=== PATIENT | female | born 1955 | race Caucasian/White ===

== ENCOUNTER → 2019-12-12 12:42 | Outpatient (CLI) | payer BC, SELFPAY ==
--- NOTE | ~2019-12-12 | CT_ITS ---
EXAMINATION: CT chest high resolution wo id DATE: 12/12/2019 12:59 INDICATION: Sarcoidosis, unspecified TECHNIQUE: Computed tomography (CT) of the chest was performed without intravenous contrast. The dose -length product (DLP) was 283.47 mGy-cm. Automated exposure control and iterative reconstruction tech nique were employed. COMPARISON: 12/08/2018, 06/02/2018 FINDINGS: Again noted are large calcified mediastinal and bilateral hilar lymph nodes. Airspace opaci ties of the upper lobes persist without significant change. Right lower lobe airspace opacities demon strate worsening anteriorly and improvement posteriorly. Multiple tiny nodules in a perilymphatic dis tribution are again noted. There is rounded atelectasis medially in the left lower lobe. There is no pleural effusion or pneumothorax. The heart size is normal. There is a 3.6 cm cyst of the liver. The gallbladder is surgically absent. Mild thoracic spondylosis is noted. IMPRESSION: 1. Stable airspace opacities of the upper lobes and airspace opacities of the right lower lobe, some of which have improved and some of which have worsened, all consistent with sarcoid. Reviewed, dictated and finalized at location A. IMPRESSION: 1. Stable airspace opacities of the upper lobes and airspace opacities of the r ight lower lobe, some of which have improved and some of which have worsened, a ll consistent with sarcoid.
== END ==
PROVIDERS: PCP Internal Medicine Critical Care Medicine; Visit Provider Internal Medicine Critical Care Medicine
DX: D86.9 Sarcoidosis, unspecified (principal); R91.8 Other nonspecific abnormal finding of lung field
CPT/HCPCS: 71250

== ENCOUNTER 2020-01-09 12:37 | Outpatient (CLI) | payer BC, SELFPAY ==
--- NOTE | 2020-01-09 16:45 | WPDPFTINT ---
PFT Interpretation PFT Interpretation: DOS: 01/09/2020 REQUESTING: Dr Ruiz REASON FOR TESTING: sarcoidosis PULMONARY FUNCTION TESTS Results are reliable. Spirometry: FEV1 91%, FVC 80%, FEV1% 74%, all normal values. There is no increase in flows with bronchodilator. Lung volumes: TLC 94%, normal. Slow vital capacity is 89%, larger than FVC which is consistent with dynamic air trapping. RV 102%, normal. RV/TLC is increased consistent with air trapping. Increased airway resistance. Diffusion: DLCO 85%, normal. Flow volume loop: Normal. IMPRESSION: No prior study to compare. Normal spirometry. Increased air trapping evidenced by increased RV/TLC, dynamic air trapping, increased airway resistance. These findings are consistent with obstruction. This pattern can be seen in sarcoidosis. Diane Ruiz MD
== END 2020-01-09 12:38 | disposition home or self-care (01) ==
PROVIDERS: PCP Family Medicine; Visit Provider Internal Medicine Critical Care Medicine
DX: R06.02 Shortness of breath (principal)
CPT/HCPCS: 94060; 94618; 94726; 94729

== ENCOUNTER → 2020-04-01 15:00 | Outpatient (REF) | payer BC, SELFPAY | LOC: ANHLAB 15:00 | PROVIDERS: PCP Family Medicine; Visit Provider Nurse Practitioner | DX: D49.2 Neoplasm of unspecified behavior of bone, soft tissue, and skin (principal) | CPT/HCPCS: 88305 ==

== ENCOUNTER → 2020-04-14 | Outpatient (REF) | payer BC, SELFPAY | END | disposition home or self-care (01) | LOC: ANHLAB 14:56 | PROVIDERS: PCP Family Medicine; Visit Provider Nurse Practitioner | DX: D23.21 Other benign neoplasm of skin of right ear and external auricular canal (principal) | CPT/HCPCS: 88305 ==

== ENCOUNTER → 2020-06-04 07:59 | Outpatient (CLI) | payer MEDICARE, SELFPAY ==
--- NOTE | ~2020-06-04 | US_ITS ---
EXAMINATION: US right upper quadrant DATE: 06/04/2020 08:21 INDICATION: Abnormal GGT TECHNIQUE: Multiple grayscale and Doppler ultrasound images of the abdomen were obtained. COMPARISON: None available FINDINGS: The head and body of the pancreas are normal. The pancreatic tail is obscured by bowel gas. Cysts of the liver measure up to 3.4 cm. The liver is normal with normal echogenicity and echotextur e. No surface nodularity. Normal hepatopetal flow in the main portal vein. The gallbladder is surgica lly absent. The normal common bile duct measures 5 mm. IMPRESSION: 1. No sonographic correlate for the patient's symptoms. Reviewed, dictated and finalized at location A. CAL ASSISTANT SECRETARY
== END ==
PROVIDERS: PCP Family Medicine; Visit Provider Family Medicine
DX: R74.8 Abnormal levels of other serum enzymes (principal)
CPT/HCPCS: 76705

== ENCOUNTER → 2021-04-21 12:04 | Outpatient (CLI) | payer MEDICARE, SELFPAY ==
--- NOTE | ~2021-04-21 | MR_ITS ---
EXAMINATION: MR lumbar spine wo con DATE: 04/21/2021 13:04 INDICATION: Polyneuropathy. Lumbar disc disease. TECHNIQUE: Magnetic resonance imaging (MRI) of the lumbar spine was performed without intravenous con trast. Sequences included sagittal T2-weighted FSE, sagittal T2-weighted FS FSE, sagittal T1-weighted FSE, and axial T2-weighted FSE. COMPARISON: Lumbar spine MRI 11/19/2017 FINDINGS: There is 12 degrees dextroscoliosis of lumbar spine. Vertebral body heights are normal. The re is severely decreased disc height at L2-L3 and L4-L5 with endplate remodeling. The distal spinal c ord signal intensity is normal. The conus medullaris is at L1. The following disc levels are specific ally discussed: L1-L2: The disc does not extend beyond the endplate margin. There is mild bilateral facet joint osteo arthritis. There is no neural foraminal stenosis. There is no central canal stenosis. L2-L3: The disc is bulging and has an annular fissure. There is mild right and moderate left facet macey int osteoarthritis. There is mild bilateral neural foraminal stenosis. There is mild central canal st enosis. L3-L4: The disc is bulging. There is moderate bilateral facet joint osteoarthritis. There is mild vincent ateral neural foraminal stenosis. There is mild central canal stenosis. L4-L5: The disc is bulging and has an annular fissure. There is moderate bilateral facet joint osteoa rthritis. There is moderate right and mild left neural foraminal stenosis. There is mild central rodolfo l stenosis. L5-S1: The disc is bulging and has an annular fissure. There is moderate bilateral facet joint osteoa rthritis. There is mild bilateral neural foraminal stenosis. There is mild central canal stenosis. IMPRESSION: 1. Severe lumbar spondylosis, worsened from 11/19/2017. 2. Lumbar dextroscoliosis. Reviewed, dictated and finalized at location B. AL SERVICES OFFICER
--- NOTE | ~2021-04-21 | CT_ITS ---
EXAMINATION: CT abdomen pelvis w con INDICATION: Abdominal pain and bloating TECHNIQUE: Computed tomographic images of the abdomen and pelvis were obtained after the administrati on of 100 cc of Omnipaque 350 intravenous contrast. The dose-length product (DLP) was 913.26 mGy-cm. Automated exposure control and iterative reconstruction technique were employed. COMPARISON: None available FINDINGS: There are minimal airspace opacities of the visualized lung bases. The heart size is normal . Calcified pulmonary nodules and calcified bilateral hilar and mediastinal lymph nodes are consisten t with old granulomatous disease. Cysts of the liver measure up to 4 cm in the right hepatic lobe. Th e gallbladder is surgically absent. Thin calcifications along the lateral margin of the spleen could reflect prior injury. The pancreas and adrenal glands are normal. There is a posterior diverticulum o f the gastric fundus with internal hyperattenuating material. Cysts of the kidneys measure up to 1.9 cm on the right. No pathologically enlarged abdominal or pelvic lymph nodes are identified. There is no free intraperitoneal gas or evidence of bowel obstruction. There is moderate lumbar spondylosis. . IMPRESSION: 1. Minimal airspace opacities of the visualized lung bases, likely pneumonia. 2. Posterior diverticulum of the gastric fundus. Reviewed, dictated and finalized at location F. DESIGN ENGINEER
[2021-04-21 13:16] LABS: Estimated Glomerular Filt Rate > 60
== END ==
PROVIDERS: PCP Family Medicine; Visit Provider Family Medicine
DX: G62.9 Polyneuropathy, unspecified (principal); R14.0 Abdominal distension (gaseous); R91.8 Other nonspecific abnormal finding of lung field; K31.4 Gastric diverticulum; M47.896 Other spondylosis, lumbar region
CPT/HCPCS: 72148; 74177; Q9967

== ENCOUNTER 2021-10-16 07:29 | Outpatient (CLI) | payer MEDICARE, SELFPAY ==
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
[2021-11-11 14:41] VITALS: BMI 27.8
== END 2021-10-17 06:18 | disposition home or self-care (01) ==
LOC: ANHCSM 07:29
PROVIDERS: PCP Family Medicine; Visit Provider Internal Medicine Critical Care Medicine
DX: G47.33 Obstructive sleep apnea (adult) (pediatric) (principal); G25.81 Restless legs syndrome
CPT/HCPCS: 95811

== ENCOUNTER 2021-12-05 11:24 | Outpatient (CLI) | payer MEDICARE, SELFPAY | END 2021-12-05 11:25 | disposition home or self-care (01) | PROVIDERS: PCP Family Medicine; Visit Provider Nurse Practitioner Family | DX: E11.9 Type 2 diabetes mellitus without complications (principal); G25.81 Restless legs syndrome | CPT/HCPCS: 36415; 82728 ==

== ENCOUNTER 2022-02-19 12:11 | Outpatient (CLI) | payer MEDICARE, SELFPAY ==
[2022-02-19 14:04] LABS: Ferritin 9.18 ng/mL (11.1-264)
== END 2022-02-19 12:12 | disposition home or self-care (01) ==
PROVIDERS: PCP Family Medicine; Visit Provider Nurse Practitioner Family
DX: E11.9 Type 2 diabetes mellitus without complications (principal); G25.81 Restless legs syndrome
CPT/HCPCS: 36415; 82728

== ENCOUNTER 2022-06-18 11:15 | Outpatient (CLI) | payer MEDICARE, SELFPAY ==
--- NOTE | ~2022-06-18 | XR_ITS ---
EXAMINATION: XR lumbar spine 2-3V DATE: 06/18/2022 12:09 INDICATION: Low back pain. TECHNIQUE: 3 views of lumbar spine were obtained. COMPARISON: Lumbar spine MRI 04/21/2021 FINDINGS: There is 11 degrees dextroscoliosis of thoracolumbar spine. Vertebral body heights are norm al. There is severely decreased disc height at L2-L3, mildly decreased disc height at L3-L4, severely decreased disc height at L4-L5, and mildly decreased disc height at L5-S1. There is multilevel mild to moderate facet joint osteoarthritis. Surgical clips in the right upper quadrant are likely from ch olecystectomy. IMPRESSION: 1. Severe lumbar spondylosis. 2. Thoracolumbar dextroscoliosis. Reviewed, dictated and finalized at location A. K SALES REPRESENTATIVE
--- NOTE | ~2022-06-18 | XR_ITS ---
Cervical Spine: AP, lateral, open-mouth views Clinical History: Pain Findings: The normal lordotic curve is maintained. The vertebral bodies and posterior elements appea r intact. There is mild degenerative disc narrowing at C5-C6. There is mild uncovertebral joint degen erative change at C5-C6. Pre-vertebral soft tissues are unremarkable. Impression: Mild degenerative changes at C5-C6, as detailed above. Reviewed, dictated and finalized at location . R SCHOOL MUSIC TEACHER Impression: Mild degenerative changes at C5-C6, as detailed above.
== END 2022-06-18 11:16 | disposition home or self-care (01) ==
PROVIDERS: PCP Family Medicine; Visit Provider Physician Assistant
DX: M51.36 Other intervertebral disc degeneration, lumbar region (principal); M50.322 Other cervical disc degeneration at C5-C6 level; M47.896 Other spondylosis, lumbar region; D64.9 Anemia, unspecified
CPT/HCPCS: 36415; 72050; 72100; 82728

== ENCOUNTER 2022-09-14 13:18 | Outpatient (CLI) | payer MEDICARE, SELFPAY | END 2022-09-14 13:19 | disposition home or self-care (01) | PROVIDERS: PCP Family Medicine; Visit Provider Physician Assistant | DX: D64.9 Anemia, unspecified (principal) | CPT/HCPCS: 36415; 82728 ==

== ENCOUNTER 2022-12-11 11:15 | Outpatient (CLI) | payer MEDICARE, SELFPAY | END 2022-12-11 11:16 | disposition home or self-care (01) | LOC: ANHLAB 11:17 | PROVIDERS: PCP Family Medicine; Visit Provider Physician Assistant | DX: D64.9 Anemia, unspecified (principal) | CPT/HCPCS: 36415; 82728 ==

== ENCOUNTER 2023-05-13 14:52 | Outpatient (CLI) | payer MEDICARE, SELFPAY | END 2023-05-13 14:53 | disposition home or self-care (01) | PROVIDERS: PCP Family Medicine; Visit Provider Physician Assistant | DX: D64.9 Anemia, unspecified (principal) | CPT/HCPCS: 36415; 82728 ==

== ENCOUNTER 2023-11-08 10:13 | Outpatient (CLI) | payer MEDICARE, SELFPAY ==
--- NOTE | ~2023-11-08 | CT_ITS ---
CT Scan of the Chest without Contrast: Clinical Indication: Sarcoid Technique: Contiguous sections were acquired throughout the chest without intravenous contrast. Dose reduction technique was used on this scan by utilizing automated exposure control and iterative recon struction technique. The dose-length product (DLP) was 230.78 mGy-cm. COMPARISON: 12/12/2019 Findings: There are numerous calcified lymph nodes throughout the mediastinum and bilateral hilar regions. No a xillary lymphadenopathy. The mediastinal soft tissues otherwise appear normal. There is no evidence of pleural or pericardial effusion. There are upper lobe predominant chronic interstitial changes, which are essentially stable from prio r exam, with possible mild interval improvement in some areas of impacted airways or atelectatic ahuja ge.. Images through the upper abdomen reveal no abnormalities. Impression: Upper lobe predominant interstitial disease, stable to minimally improved from prior exam, compatible with pulmonary sarcoid. Numerous calcified mediastinal and hilar lymph nodes, compatible with sarcoid. Reviewed, dictated and finalized at [facility]. Impression: Upper lobe predominant interstitial disease, stable to minimally improved from prior exam, compatible with pulmonary sarcoid. Numerous calcified mediastinal and hilar lymph nodes, compatible with sarcoid.
== END 2023-11-08 10:14 ==
LOC: GOSHIMG 10:15
PROVIDERS: PCP Family Medicine; Visit Provider Physician Assistant
DX: D86.9 Sarcoidosis, unspecified (principal)
CPT/HCPCS: 71250

== ENCOUNTER 2024-07-09 07:47 | Outpatient (CLI) | payer MEDICARE, SELFPAY ==
--- NOTE | ~2024-07-09 | MR_ITS ---
MRI of the lumbar spine Clinical History: Spinal stenosis Technique: Axial T2-weighted images, and sagittal T1-weighted, T2-weighted, and T2 fat-sat images wer e acquired. Findings: There is no fracture or subluxation of the lumbar spine. Vertebral bodies maintain normal h eight and alignment. No bone marrow signal abnormality seen. At L1-L2, there is no disc bulge or herniation. There is minimal facet hypertrophy. No spinal canal s tenosis or neural foraminal narrowing. At L2-L3, there is mild degenerative disc narrowing. There is minimal disc bulge with moderate facet arthropathy. No central canal stenosis or neural foraminal narrowing. At L3-L4, there is minimal disc bulge with moderate to advanced facet arthropathy. No central canal s tenosis or neural foraminal narrowing. At L4-L5, there is advanced degenerative disc narrowing. There is minimal disc bulge with severe face t arthropathy. No central canal stenosis. There is probable minimal right neural foraminal narrowing. Left neural foramen preserved. At L5-S1, there is no significant disc bulge or herniation. There is mild facet joint hypertrophy. No central canal stenosis. Neural foramina are minimally narrowed. Paravertebral soft tissues are unremarkable. Impression: Mild degenerative spondylitic changes, as above. Reviewed, dictated and finalized at location . Impression: Mild degenerative spondylitic changes, as above.
== END 2024-07-09 07:48 | disposition home or self-care (01) ==
PROVIDERS: PCP Family Medicine; Visit Provider Family Medicine
DX: M48.061 Spinal stenosis, lumbar region without neurogenic claudication (principal); M47.896 Other spondylosis, lumbar region
CPT/HCPCS: 72148

== ENCOUNTER 2024-09-18 10:07 | Outpatient (CLI) | payer MEDICARE, SELFPAY ==
--- OUTSIDE RECORDS SUMMARY | 2024-09-18 10:13 | XMS_ITS ---
Author Organization [facility] Address [address] [place] [address] Care Team Providers Care Insulation Helper Name Role Phone Mague Cuenca MD Primary Care Provider Unavail Fanny Allen Unavailable [phone] REASON FOR VISIT diabetic foot care Encounters Encounter Location Date Provider Diagnosis Matthew Aguilar Dpm [facility] [address] [phone] 06/25/2024 Fanny Guadalupe Plan Of Treatment Next Appt Details Provider Name:Fanny lai, 10/22/2024 03:30:00 PM, [address] [address], [place], [place], [phone], Progress Notes * ASHOKCOLBYRenaOB:1955 (68 yo F)Acc No.[id number]:06/25/2024 Patient: Aakash ESTELLEShy LAND Provider: Linda Guadalupe DPM, DABPM :1955 A ge:68 Y S ex:Female Date:06/25/2024 Address:[facility] [address] [facility] Pcp:Mague Cuenca MD Subjective: * Chief Complaints: * 1 . Diabetic foot care. * Medical History: Objective: * Vitals: Assessment: Plan: * Treatment: * Billing Information: * Visit Code: * Procedure Codes: * Electronic signature of Marcia Guadalupe DPM DABPM on 09/18/2024 at 10:13 AM CDT Sign off status: Pending * Provider: Linda Guadalupe DPM, DABPM Date: 0 06/25/2024 Generated for Marita regalado/Wendy/Bijan on: 0 09/18/2024 10:13 AM CDT
--- OUTSIDE RECORDS SUMMARY | 2024-09-18 10:13 | XMS_ITS ---
Author Organization [facility] Address [address] [place] [address] Care Team Providers Care Still Operator Helper Name Role Phone Mague Cuenca MD Primary Care Provider Unavail Fanny Allen Unavailable [phone] REASON FOR VISIT diabetic foot care Encounters Encounter Location Date Provider Diagnosis Matthew Aguilar Dpm [facility] [address] [phone] 04/09/2024 Fanny Guadalupe Plan Of Treatment Next Appt Details Provider Name:Fanny lai, 10/22/2024 03:30:00 PM, [address] [address], [place], [place], [id number], Progress Notes * ASHOKCOLBYRenaOB:1955 (68 yo F)Acc No.[id number]:04/09/2024 Patient: Shy SHEPARD Provider: Linda Guadalupe DPM, DABPM :1955 A ge:68 Y S ex:Female Date:04/09/2024 Address: [address] [facility] Pcp:Mague Cuenca MD Subjective: * Chief Complaints: * 1 . Diabetic foot care. * Medical History: Objective: * Vitals: Assessment: Plan: * Treatment: * Billing Information: * Visit Code: * Procedure Codes: * Electronic signature of Marcia Guadalupe DPM DABPM on 09/18/2024 at 10:13 AM CDT Sign off status: Pending * Provider: Linda Guadalupe DPM, FRANCESCA Date: 1 06/10/2023 Generated for Marita regalado/Wendy/Bijan on: 0 09/18/2024 10:13 AM CDT
--- OUTSIDE RECORDS SUMMARY | 2024-09-18 10:14 | XMS_ITS | Patient Health Record ---
Author Organization [facility] Address [address] [place] [address] Care Team Providers Care Retort Condenser Attendant Name Role Phone Dr. Mague Cuenca Primary Care Provider [phone] Zach Wilcox Unavailable [phone] Sowmya Youngblood Unavailable [phone] Migration, Provider Unavailable Unavailable Allergies Allergen (clinical drug ingredient) Drug/Non Drug Allergy documented on EMR Reaction Allergy Type Onset Date Status metoclopramide Reglan Unknown Drug Allergy 11/04/2020 A ctive Medicinal cephalosporin and acting as antibacterial agent (FN) Cephalosporins Unknown Drug Allergy 11/04/2020 Active clindamycin Clindamycin Unknown Drug Allergy 11/04/2020 Ac tive Substance with penicillin structure and antibacterial mechanism of action (substance) Penicillins Unknown Drug Allergy 11/04/2020 Active Substance with sulfonamide structure and antibacterial mechanism of action (substance) Sulfa Antibiotics Unknown Drug Allergy 11/04/2020 Active Results Component Value Reference Range Notes Patient Health Questionnaire (PHQ9) Reviewed date:02/15/2024 12:00:00 AM Interpretation: Performing Lab: Notes/Report: Feeling bad about yourself o r that you are a failure or have let yourself or your family down 0 Feeling down, depressed, or hopeless 0 Feeling tired or having little energy 0 If you checked off any probl ems, how difficult Not difficult at all have these problems made it for you to do your work, take care of things at home, or get along with other people? 0 Little interest or pleasure in doing things 0 Moving or speaking so slowly that other people could have noticed or the opposite being so figety or restless that you have been moving around a lot more than usual 0 Poor appetite or overeating 0 Thoughts that you would be b amie off , or of hurting yourself 0 Trouble concentrating on thi ngs, such as reading the newspaper or watching television 0 Trouble falling or staying a sleep, or sleeping too much 0 Vitamin D 25 Hydroxy Reviewed date:02/24/2024 12:00:00 AM Interpretation: Performing Lab: Notes/Report: Vitamin D 25 OH 33 ng/mL Vitamin B12 Reviewed date:02/24/2024 12:00:00 AM Interpretation: Performing Lab: Notes/Report: Vitamin B12 Lvl 968 pg/mL Thyroid Stimulating Hormone Reviewed date:02/24/2024 12:00:00 AM Interpretation: Performing Lab: Notes/Report: TSH 1.44 mcIU/mL T4 Free Reviewed date:02/24/2024 12:00:00 AM Interpretation: Performing Lab: Notes/Report: T4 Free 0.99 ng/dL Lipid Panel {Chol, Trig, HDL , LDL} Reviewed date:02/27/2024 12:00:00 AM Interpretation: Performing Lab: Notes/Report: Chol/HDL 3 Cholesterol Total 120 mg/dL Coronary Risk 37 % HDL 45 mg/dL LDL 26 mg/dL NON HDL CHOLESTEROL 76 mg/dL Triglycerides 248 mg/dL Comprehensive Metabolic Pane l Reviewed date:02/27/2024 12:00:00 AM Interpretation: Performing Lab: Notes/Report: Albumin Lvl 4.5 g/dL Albumin/Globulin Ratio 2.0 Alk Phos 92 unit/L ALT 27 unit/L ANION GAP 5.3 mmol/L AST 24 unit/L Bilirubin Total 0.3 mg/dL BUN 24 mg/dL Calcium Lvl 9.7 mg/dL Chloride Lvl 108 mmol/L CO2 30 mmol/L Creatinine Lvl 1.02 mg/dL eGFR CKD-EPI 59 mL/min/1.73 m2 Glucose Lvl 77 mg/dL Potassium Lvl 4.5 mmol/L Protein Total 6.8 g/dL Sodium Lvl 143 mmol/L CBC w/ Diff Reviewed date:02/24/2024 12:00:00 AM Interpretation: Performing Lab: Notes/Report: Baso Absolute 0.1 x10*3/mcL Basophil Auto 1.4 % Eos Absolute 0.1 x10*3/mcL Eosinophil Auto 1.1 % Hct 38.9 % Hgb 12.6 g/dL Lymph Absolute 1.5 x10*3/mcL Lymph Auto 31.8 % MCH 27.8 pg MCHC 32.4 g/dL MCV 85.8 fL Young Absolute 0.4 x10*3/mcL Young Auto 7.7 % MPV 11.2 fL Neutro Absolute 2.8 x10*3/mcL Neutro Auto 58.0 % Platelets 118 K/mcL RBC 4.53 x10*6/mcL RDW 14.2 % WBC 4.8 K/mcL AUDIT-C Reviewed date:02/15/2024 12:00:00 AM Interpretation: Performing Lab: Notes/Report: How many standard drinks con taining alcohol do you have on a typical day? N/A How often do you have 6 or m ore drinks on 1 occasion Never How often do you have a drin k containing alcohol Never Total Score 0 Thyroid Stimulating Hormone Reviewed date:12/09/2023 12:00:00 AM Interpretation: Performing Lab: Notes/Report: TSH 0.94 mcIU/mL T4 Free Reviewed date:12/09/2023 12:00:00 AM Interpretation: Performing Lab: Notes/Report: T4 Free 0.80 ng/dL Magnesium Reviewed date:12/09/2023 12:00:00 AM Interpretation: Performing Lab: Notes/Report: Magnesium Lvl 1.8 mg/dL Lipid Panel {Chol, Trig, HDL , LDL} Reviewed date:12/09/2023 12:00:00 AM Interpretation: Performing Lab: Notes/Report: Chol/HDL 3 Cholesterol Total 115 mg/dL Coronary Risk 34 % HDL 39 mg/dL LDL 29 mg/dL NON HDL CHOLESTEROL 76 mg/dL Triglycerides 238 mg/dL Hemoglobin A1c {Glycosylated } Reviewed date:12/09/2023 12:00:00 AM Interpretation: Performing Lab: Notes/Report: eAvg Glucose 123 mg/dL Hemoglobin A1c 5.9 % Comprehensive Metabolic Pane l Reviewed date:12/09/2023 12:00:00 AM Interpretation: Performing Lab: Notes/Report: Albumin Lvl 4.4 g/dL Albumin/Globulin Ratio 2.0 Alk Phos 87 unit/L ALT 23 unit/L ANION GAP 7.7 mmol/L AST 22 unit/L Bilirubin Total 0.4 mg/dL BUN 18 mg/dL Calcium Lvl 10.0 mg/dL Chloride Lvl 109 mmol/L CO2 26 mmol/L Creatinine Lvl 0.86 mg/dL eGFR CKD-EPI 73 mL/min/1.73 m2 Glucose Lvl 106 mg/dL Potassium Lvl 4.7 mmol/L Protein Total 6.7 g/dL Sodium Lvl 143 mmol/L CBC w/ Diff Reviewed date:12/09/2023 12:00:00 AM Interpretation: Performing Lab: Notes/Report: Baso Absolute 0.1 x10*3/mcL Basophil Auto 1.1 % Eos Absolute 0.1 x10*3/mcL Eosinophil Auto 1.3 % Hct 36.7 % Hgb 12.4 g/dL Lymph Absolute 1.1 x10*3/mcL Lymph Auto 22.8 % MCH 29.2 pg MCHC 33.7 g/dL MCV 86.7 fL Young Absolute 0.3 x10*3/mcL Young Auto 6.3 % MPV 11.8 fL Neutro Absolute 3.3 x10*3/mcL Neutro Auto 68.5 % Platelets 117 K/mcL RBC 4.24 x10*6/mcL RDW 13.4 % WBC 4.9 K/mcL MRI : Lumbar without contras t Reviewed date:09/06/2024 01:48:08 PM Interpretation: Performing Lab: Notes/Report: Chest X-ray PA and lateral Reviewed date:09/06/2024 02:23:12 PM Interpretation: Performing Lab: Notes/Report: Reason For Referral No Information Medications Medication SIG (Take, Route, Frequency, Duration) Notes Start Date End Date Status Pregabalin 150 MG Capsule 1 capsule Orally 3 times a day; Duration: 30 days increased dose. 06/22/2024 12/19/2024 Active Fiasp FlexTouch 100 UNIT/ML Solution Pen-injector 3 Subcutaneous three times a day; Duration: 0 11/18/2021 Active Omeprazole 40 MG Capsule Delayed Release 1 Oral two times a day; Duration: 90 Active Rosuvastatin Calcium 10 MG Tablet 1 tablet Orally Once a day; Duration: 90 days at bedtime Active BLOOD GLUCOSE MONITORING EACH MISCELLANEOUS; Duration: 0 *Reorder from [employer] for eRx and Interaction Alerts* 02/18/2021 Active Montelukast Sodium 10 MG Tablet 1 Oral every evening; Duration: 90 Active Insulin Degludec FlexTouch 200 UNIT/ML Solution Pen-injector 50 units Subcutaneous daily; Duration: 90 days updated Rx with generic name coverage per ins. 06/22/2024 Active Potassium Chloride ER 20 MEQ Tablet Extended Release 1 tablet with food Orally Once a day; Duration: 90 days Active Wellbutrin XL 300 MG Tablet Extended Release 24 Hour 1 tablet in the morning Orally Once a day; Duration: 90 days increased dose up from 150mg. Pt will finish her 150mg XL tabs first. 06/22/2024 Active Topiramate 25 MG Tablet 1 Oral two times a day; Duration: 90 Active Centrum Silver Women 8 mg iron-400 mcg-300 mcg Tablet 1 Oral every day; Duration: 0 *Reorder from [employer] for eRx and Interaction Alerts* 03/30/2022 Active Escitalopram Oxalate 10 MG Tablet 1 Oral at bed time; Duration: 90 Active Biotin oral; Duration: 0 *Pick strength-form from [employer] for eRX* 03/02/2024 Not-Taking ProAir RespiClick 108 (90 Base) MCG/ACT Aerosol Powder Breath Activated 2 Inhalation every four hours; Duration: 0 01/07/2023 Not-Taking calcium carb and citrate-vitD3 600 mg-12.5 mcg (500 unit) Tablet(s) 2 BY MOUTH two times a day; Duration: 0 *Reorder from [employer] for eRx and Interaction Alerts* 03/30/2022 Active Lancing Device KIT MISCELLANEOUS; Duration: 0 02/18/2021 Not-Taking Ozempic (1 MG/DOSE) 4 MG/3ML Solution Pen-injector as directed Subcutaneous Active rOPINIRole HCl 1 MG Tablet 1 tablet 1 to 3 hours before bedtime Orally Once a day; Duration: 30 days Active vitamin E (dl, acetate) 180 mg (400 unit) Capsule(s) 1 BY MOUTH two times a day; Duration: 0 *Reorder from [employer] for eRx and Interaction Alerts* 03/30/2022 Active Immunizations Vaccine Route Administration Date Status Comme nts Zoster Unknown 08/08/2017 Administered ,sourcename : Historical information -from other registry Source VFC Code: : Zoster Unknown 10/19/2018 Administered ,sourcename : Historical information -from other registry Source VFC Code: : Tdap Unknown 10/24/2017 Administered ,sourcename : Historical information -from other registry Source VFC Code: : RSV-MAb (Respiratory syncytial virus immune globulin) IM Intramuscular 12/16/2023 Administered ,sourcename : New immunization record ,immstatus : Complete Pneumococcal polysaccharide PPV23 Unknown 04/11/2012 Administered ,sourcename : Historical information -from other registry Source VFC Code: : Pneumococcal polysaccharide PPV23 Unknown 01/04/2020 Administered ,sourcename : Historical information -from other registry Source VFC Code: : Pneumococcal conjugate PCV 13 Unknown 02/07/2017 Administered ,sourcename : Historical information -from other registry Source VFC Code: : Pfizer-Biontech Covid-19 Vaccine 1st dose Unknown 06/12/2020 Administered Source VFC Code: : Pfizer-[employer]iontech Covid-19 Vaccine 1st dose Unknown 07/03/2020 Administered Source VFC Code: : Influenza, quadrivalent (IIV4), split virus, 6-35 months dosage IM Intramuscular 01/26/2018 Administered Source VFC Code: : Influenza, quadrivalent (IIV4), split virus, 6-35 months dosage IM Intramuscular 04/22/2020 Administered Source VFC Code: : Influenza, high-dose seasonal, quadrivalent, preservative free >65 yrs IM Intramuscular 04/08/2021 Administered ,sourcename : New immunization record ,immstatus : Complete Source VFC Code: : Influenza, high-dose seasonal, quadrivalent, preservative free >65 yrs IM Intramuscular 02/22/2022 Administered Source VFC Code: : Influenza, high dose seasonal IM Intramuscular 04/10/2019 Administered Source VFC Code: : Influenza, high dose seasonal IM Intramuscular 04/08/2021 Administered Source VFC Code: : Social History Social History Additional Details Category Social Info Options Details Migrated Social History Migrated Social History Tobacco history:Never smoker Problems Problem Type SNOMED Code ICD Code Onset Dates Problem Status W/U Status Risk Notes Problem Hypothyroidism (21767473) Hypothyroidism, unspecified (E03.9) 01/08/20 Active confirmed Problem Diabetic peripheral neuropathy associated with type 2 diabetes mellitus (6868093505492) Type 2 diabetes mellitus with diabetic neuropathy, unspecified (E11.40) 04/08/20 Active confirmed Problem Hyperglycemia due to type 2 diabetes mellitus (485328133218524) Type 2 diabetes mellitus with hyperglycemia (E11.65) 10/15/19 23 Active confirmed Problem Mixed hyperlipidemia (915312359) Mixed hyperlipidemia (E78.2) 01/08/20 21 Active confirmed Problem Severe recurrent major depression without psychotic features (69732644) Major depressive disorder, recurrent severe without psychotic features (F33.2) 09/18/19 23 Active confirmed Problem Anxiety disorder (497624273) Anxiety disorder, unspecified (F41.9) 08/26/19 24 Active confirmed Problem Sleep apnea (25368357) Sleep apnea, unspecified (G47.30) 02/23/20 22 Active confirmed Problem Polyneuropathy (16776856) Polyneuropathy, unspecified (G62.9) 04/08/20 21 Active confirmed Problem Gastro-esophageal reflux disease without esophagitis (583821754) Gastro-esophageal reflux disease without esophagitis (K21.9) 01/08/20 21 Active confirmed Problem Arthralgia of the pelvic region and thigh (246195537) Pain in right hip (M25.551) 11/08/19 24 Active confirmed Problem Exocrine pancreatic insufficiency (38828935) Exocrine pancreatic insufficiency (K86.81) 12/01/19 22 Active confirmed Problem Body mass index 25-29 - overweight (644365316) Body mass index (BMI) 26.0-26.9, adult (Z68.26) 02/15/20 24 Active confirmed Problem Long-term current use of insulin (610576396) long term care pharmacist (current) use of insulin (Z79.4) 08/26/19 24 Active confirmed Problem Atrial fibrillation (10192813) Unspecified atrial fibrillation (I48.91) 08/29/19 22 Active confirmed Problem Essential hypertension (16650777) Essential (primary) hypertension (I10) 04/08/20 21 Active confirmed Problem Iron deficiency (28543038) Iron deficiency (E61.1) 02/23/20 22 Active confirmed Problem Diabetic renal disease (098190900) Type 2 diabetes mellitus with diabetic chronic kidney disease (E11.22) 08/26/19 24 Active confirmed Problem Sarcoidosis of lung (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) 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) 05/28/19 23 Active confirmed Problem Thrombocytopenia (854333312) Thrombocytopenia, unspecified (D69.6) 12/01/19 22 Active confirmed Problem Headache (57711214) Headache, unspecified (R51.9) 03/02/20 24 Active confirmed Problem Chronic kidney disease stage 3A (disorder) (819316310) Chronic kidney disease, stage 3a (N18.31) 02/15/20 24 Active confirmed Problem Spinal stenosis of lumbar region (29324884) Spinal stenosis, lumbar region without neurogenic claudication (M48.061) 10/15/19 23 Active confirmed Problem Insomnia (793832166) Insomnia, unspecified (G47.00) 03/04/20 23 Active confirmed Vital Signs Heart Rate 76 /min 07/26/2024 Temperature 97.2 degrees Fahrenheit 07/26/2024 Respiratory Rate 16 /min 07/26/2024 Height-cm 170.18 cm 07/26/2024 Blood pressure diastolic 68 mm Hg 07/26/2024 Oximetry 97 % 07/26/2024 Weight-kg 79.83 kg 07/26/2024 Height 67.00 in 07/26/2024 Blood pressure systolic 130 mm Hg 07/26/2024 Weight 176 lbs 07/26/2024 BMI 27.56 kg/m2 07/26/2024 Procedures Procedure Date Ordered Date Performed Result Body Sit e SPECIAL EYE EVALUATION 05/31/2024 05/30/2024 Normal Encounters Encounter Location Date Provider Diagnosis [address] [address] 11/08/2023 Zach Jeri Polyneuropathy, unspecified G62.9 and Pain in right hip M25.[address] [address] 12/08/2023 Provider Migration Hypothyroidism, unspecified E03.9 ; Type 2 diabetes mellitus with diabetic chronic kidney disease E11.22 ; Essential (primary) hypertension I10 and Hyperlipidemia, unspecified E78.[address] [address] 12/16/2023 Dr. Mague Cuenca Type 2 diabetes mellitus with diabetic neuropathy, unspecified E11.40 ; Sarcoidosis, unspecified D86.9 ; Asymptomatic menopausal state Z78.0 ; Spinal stenosis, lumbar region without neurogenic claudication M48.061 ; Hypothyroidism, unspecified E03.9 ; Encounter for immunization Z23 ; Exocrine pancreatic insufficiency K86.81 ; Essential (primary) hypertension I10 ; Hyperlipidemia, unspecified E78.5 and Thrombocytopenia, unspecified D69.[address] [place] [address] 02/15/2024 [facility] Chronic kidney disease, stage 3a N18.31 ; Body mass index (BMI) 26.0-26.9, adult Z68.26 ; Major depressive disorder, recurrent severe without psychotic features F33.2 ; Essential (primary) hypertension I10 ; Type 2 diabetes mellitus with diabetic neuropathy, unspecified E11.40 ; Unspecified atrial fibrillation I48.91 ; Obstructive sleep apnea (adult) (pediatric) G47.33 ; Sarcoidosis of lung D86.0 ; Exocrine pancreatic insufficiency K86.81 and Encounter for general adult medical examination without abnormal findings Z00.[address] [address] 02/24/2024 Provider Migration Iron deficiency E61. 1 ; Other fatigue R53.83 ; Hyperlipidemia, unspecified E78.5 ; Hypothyroidism, unspecified E03.9 and Type 2 diabetes mellitus with diabetic chronic kidney disease E11.[address] [address] 03/02/2024 Sowmya Youngblood Type 2 diabetes mellitus with diabetic chronic kidney disease E11.22 ; Major depressive disorder, recurrent severe without psychotic features F33.2 ; Hypothyroidism, unspecified E03.9 ; Type 2 diabetes mellitus with diabetic neuropathy, unspecified E11.40 ; Sarcoidosis of lung D86.0 ; Hyperlipidemia, unspecified E78.5 and Headache, unspecified R51.[address] [address] 04/09/2024 Sowmya Youngblood Fatigue, unspecified type R53.83 ; Acute cough R05.1 and Sarcoidosis of lung D86.[address] [address] 04/19/2024 Dr. Mague Cuenca Acute cough R05.1 ; Acute non-recurrent sinusitis of other sinus J01.80 and Acute bronchitis, unspecified organism J20.[address] [address] 04/28/2024 [facility] Upper respiratory infection, acute J06.9 and Persistent cough R05.[address] [address] 06/22/2024 Dr. Mague Cuenca Type 2 diabetes mellitus with diabetic chronic kidney disease E11.22 ; Thrombocytopenia, unspecified D69.6 ; Sarcoidosis of lung D86.0 ; Essential (primary) hypertension I10 ; Type 2 diabetes mellitus with hyperglycemia E11.65 ; Spinal stenosis, lumbar region without neurogenic claudication M48.061 ; RLS (restless legs syndrome) G25.81 and Major depressive disorder, recurrent severe without psychotic features F33.[address] [address] 07/26/2024 Dr. Mague Cuenca Type 2 diabetes mellitus with diabetic neuropathy, unspecified E11.40 ; Major depressive disorder, recurrent severe without psychotic features F33.2 ; Abnormal gait R26.9 and Other fatigue R53.[address] [address] 03/24/2024 Provider Migration [address] [address] 03/25/2024 Provider Migration [address] [address] 06/19/2024 Dr. Mague Cuenca Hypothyroidism, unspecified E03.9 ; Type 2 diabetes mellitus with diabetic chronic kidney disease E11.22 ; Iron deficiency E61.1 ; Mixed hyperlipidemia E78.2 ; Essential (primary) hypertension I10 and Hypomagnesemia E83.42 Assessments Encounter Date Diagnosis (ICD Code) Assessment Notes Treatment Notes Treatment Clinical Notes Section Notes 06/19/2024 Hypothyroidism, unspecified (ICD-10 - E03.9) 06/19/2024 Type 2 diabetes mellitus with diabetic chronic kidney disease (ICD-10 - E11.22) 04/09/2024 Acute cough (ICD-10 - R05.1) - Symptoms and exposure suggest possible COVID-19 infection. Patient's symptoms align with COVID-19, but no test was conducted to confirm per patient's request and being day 5.- Treat as if COVID-19. Recommend staying home, pushing fluids, and treating symptoms with [id number] medication. Offered Paxlovid as an antiviral option within the first five days of symptoms, but patient is on the last day of this window. Prescribed a Z-Chucky (antibiotic) to cover potential secondary infections and w/ hx of sarcoidosis. Advised to call if no improvement 04/09/2024 Fatigue, unspecified type (ICD-10 - R53.83) 04/19/2024 Acute cough (ICD-10 - R05.1) Cxray reviewed and neg for PNE but there may be some peribronchial changes. Recommend to start avelox 400mg daily x 10 days. Take with food. May take probiotic or eat yogurt daily. RTC for worsening sx. Pt aware. 04/19/2024 Acute non-recurrent sinusitis of other sinus (ICD-10 - J01.80) 04/28/2024 Upper respiratory infection, acute (ICD-10 - J06.9) 04/28/2024 Persistent cough (ICD-10 - R05.3) 06/22/2024 Thrombocytopenia, unspecified (ICD-10 - D69.6) continue to monitor. Was 140 last check at last checkup. 06/22/2024 Type 2 diabetes mellitus with diabetic chronic kidney disease (ICD-10 - E11.22) 32 mins spent face to face with patient, additionally 9 mins spent finishing charting and reviewing MRI lumbar spine. well controlled. Cont to see Dr. Bar f/u 6 months 07/26/2024 Type 2 diabetes mellitus with diabetic neuropathy, unspecified (ICD-10 - E11.40) managed by endo. reassurred her that her recent HBa1C as still wnl and overall control is pretty good. f/u with endo. call with concerns as well. 11/08/2023 Polyneuropathy, unspecified (ICD-10 - G62.9) 11/08/2023 Pain in right hip (ICD-10 - M25.551) 12/08/2023 Hypothyroidism, unspecified (ICD-10 - E03.9) 12/08/2023 Type 2 diabetes mellitus with diabetic chronic kidney disease (ICD-10 - E11.22) 12/08/2023 Hyperlipidemia, unspecified (ICD-10 - E78.5) 12/08/2023 Essential (primary) hypertension (ICD-10 - I10) 12/16/2023 Thrombocytopenia, unspecified (ICD-10 - D69.6) 12/16/2023 Sarcoidosis, unspecified (ICD-10 - D86.9) 12/16/2023 Hypothyroidism, unspecified (ICD-10 - E03.9) 12/16/2023 Type 2 diabetes mellitus with diabetic neuropathy, unspecified (ICD-10 - E11.40) 12/16/2023 Hyperlipidemia, unspecified (ICD-10 - E78.5) 12/16/2023 Essential (primary) hypertension (ICD-10 - I10) 12/16/2023 Encounter for immunization (ICD-10 - Z23) 12/16/2023 Asymptomatic menopausal state (ICD-10 - Z78.0) 12/16/2023 Exocrine pancreatic insufficiency (ICD-10 - K86.81) 12/16/2023 Spinal stenosis, lumbar region without neurogenic claudication (ICD-10 - M48.061) 02/15/2024 Sarcoidosis of lung (ICD-10 - D86.0) 02/15/2024 Type 2 diabetes mellitus with diabetic neuropathy, unspecified (ICD-10 - E11.40) 02/15/2024 Major depressive disorder, recurrent severe without psychotic features (ICD-10 - F33.2) 02/15/2024 Obstructive sleep apnea (adult) (pediatric) (ICD-10 - G47.33) 02/15/2024 Essential (primary) hypertension (ICD-10 - I10) 02/15/2024 Unspecified atrial fibrillation (ICD-10 - I48.91) 02/15/2024 Encounter for general adult medical examination without abnormal findings (ICD-10 - Z00.00) 02/15/2024 Exocrine pancreatic insufficiency (ICD-10 - K86.81) 02/15/2024 Chronic kidney disease, stage 3a (ICD-10 - N18.31) 02/15/2024 Body mass index (BMI) 26.0-26.9, adult (ICD-10 - Z68.26) 02/24/2024 Hypothyroidism, unspecified (ICD-10 - E03.9) 02/24/2024 Type 2 diabetes mellitus with diabetic chronic kidney disease (ICD-10 - E11.22) 02/24/2024 Iron deficiency (ICD-10 - E61.1) 02/24/2024 Hyperlipidemia, unspecified (ICD-10 - E78.5) 02/24/2024 Other fatigue (ICD-10 - R53.83) 03/02/2024 Sarcoidosis of lung (ICD-10 - D86.0) 03/02/2024 Hypothyroidism, unspecified (ICD-10 - E03.9) 03/02/2024 Type 2 diabetes mellitus with diabetic chronic kidney disease (ICD-10 - E11.22) 03/02/2024 Type 2 diabetes mellitus with diabetic neuropathy, unspecified (ICD-10 - E11.40) 03/02/2024 Hyperlipidemia, unspecified (ICD-10 - E78.5) 03/02/2024 Major depressive disorder, recurrent severe without psychotic features (ICD-10 - F33.2) 03/02/2024 Headache, unspecified (ICD-10 - R51.9) 04/09/2024 Sarcoidosis of lung (ICD-10 - D86.0) 07/26/2024 Major depressive disorder, recurrent severe without psychotic features (ICD-10 - F33.2) Depression - Emotional blah and fatigue may be related to subtherapeutic dosing of Wellbutrin. Tiredness may also be exacerbated by Lyrica. - Increase Wellbutrin to 300 mg daily by taking two 150 mg tablets until the current supply runs out, then switch to one 300 mg tablet. Reduce Lyrica to twice daily dosing and monitor for changes in tiredness and pain. Follow up with an update on tiredness and pain control. Consider potential side effects of Wellbutrin, such as headache, nausea, and tremor at rest. consider cymbalta instead of lexapro if needed, also would help with neuropathy and pain. 06/22/2024 Sarcoidosis of lung (ICD-10 - D86.0) Sees Pulm office at [place] ([facility]) at least yearly 04/19/2024 Acute bronchitis, unspecified organism (ICD-10 - J20.9) 06/19/2024 Iron deficiency (ICD-10 - E61.1) 06/19/2024 Mixed hyperlipidemia (ICD-10 - E78.2) 06/22/2024 Essential (primary) hypertension (ICD-10 - I10) Bp well controlled. no changes to medications 07/26/2024 Abnormal gait (ICD-10 - R26.9) 06/19/2024 Essential (primary) hypertension (ICD-10 - I10) 07/26/2024 Other fatigue (ICD-10 - R53.83) 06/22/2024 Type 2 diabetes mellitus with hyperglycemia (ICD-10 - E11.65) 06/19/2024 Hypomagnesemia (ICD-10 - E83.42) 06/22/2024 Spinal stenosis, lumbar region without neurogenic claudication (ICD-10 - M48.061) 06/22/2024 RLS (restless legs syndrome) (ICD-10 - G25.81) continue requip 1 mg 06/22/2024 Major depressive disorder, recurrent severe without psychotic features (ICD-10 - F33.2) 04/19/2024 Other CVS 04/28/2024 Other RECOMMENDATIONS : Increase fluid intake, use saline nasal spray several times daily. Consider antihistamine OTC such as claritin or zyrtec, decongestant products and cough suppressant formulations if no medical contraindications. Treat fever and/or aches and pains with Tylenol and Motrin OTC. I recommended the patient RTC if not improving or if worsening. 07/26/2024 Other reduce lyrica to BID until next week and call with update about tiredness and pain control Leg Pain and Neuropathy - Leg pain and neuropathy may be due to severe facet arthropathy at L4 and L5, moderate disc bulging at L3 and L4, or peripheral neuropathy. No severe spinal cord compression noted on MRI. - Schedule an EMG to assess for neuropathy or radiculopathy. Consider blood flow testing (ALEXX) to rule out vascular issues. Consider referral back to pain management for potential benefit from pain shots. Evaluate the possibility of switching to Cymbalta (duloxetine) for chronic pain and neuropathy management if current treatment adjustments do not yield improvement. Diabetes Management - Blood sugar levels are better controlled, with A1c at 6.6. - Continue current diabetes management and encourage patient to maintain efforts in managing blood sugar levels. Plan Of Treatment Pending Test Test Name Order Date EMG/NCV ARMS 07/26/2024 ALEXX 08/15/2024 Thyroxine (T4) 06/19/2024 Iron and TIBC 06/19/2024 Hemoglobin A1c 06/19/2024 Magnesium, Serum 06/19/2024 TSH 06/19/2024 Ferritin, Serum 06/19/2024 CBC With Differential/Platelet Lipid Panel 06/19/2024 Comp. Metabolic Panel (14) 06/19/2024 Next Appt Details Provider Name:Dr. Mague murphy, 12/26/2024 09:30:00 AM, Timothy LEWIS, [place], [address], [id number] Provider Name:Dr. Mague murphy, 01/30/2025 01:30:00 PM, Timothy MOSES, [place], [address], [phone] Insurance Providers Payer Name Payer Address Payer Phone Subscriber Number Group Number Insured Name Patient Relationship to Insured Coverage Start Date Coverage End Date NGS Medicare RHC [address] [place] [address] [id number] Shy Zimmerman Self - patient is the insured 4 [employer] Senior Supplement [address] [address] [place] [address] [id number] PLAN G Shy Zimmerman Self - patient is the insured 2 NGS Medicare B [address] [place] [address] [id number] Shy Zimmerman Self - patient is the insured 2 Medical (General) History Medical History History ICD Code Asymptomatic menopausal state Thrombocytopenia, unspecified D69.6 Hypothyroidism, unspecified E03.9 Type 2 diabetes mellitus with diabetic c hronic kidney disease E11.22 Iron deficiency E61.1 Mixed hyperlipidemia E78.2 Major depressive disorder, recurrent sev ere without psychotic features F33.2 Anxiety disorder, unspecified F41.9 Insomnia, unspecified G47.00 Gastro-esophageal reflux disease without esophagitis K21.9 residential (current) use of insulin Z79.4 Chronic kidney disease, stage 3a N18.31 Essential (primary) hypertension I10 Polyneuropathy, unspecified G62.9 Type 2 diabetes mellitus with diabetic n europathy, unspecified E11.40 Unspecified atrial fibrillation I48.91 Exocrine pancreatic insufficiency K86.81 Sleep apnea, unspecified G47.30 Sarcoidosis of lung D86.0 Type 2 diabetes mellitus with hyperglyce merle E11.65 Surgical History Surgery Date(Month/Year) Dilation and curettage 1979 Tubal ligation 1998 Bladder Surgery ,notes : Bladder Tack 14 06 cholecystecomy 2002
--- OUTSIDE RECORDS SUMMARY | 2024-09-18 10:14 | XMS_ITS | Patient Health Record ---
Author Organization [facility] Address [address] [place] [address] Care Team Providers Care Exercise Equipment Repair Technician Name Role Phone Mague Cuenca MD Primary Care Provider Unavail able Fanny Guadalupe Unavailable [phone] Allergies Allergen (clinical drug ingredient) Drug/Non Drug Allergy documented on EMR Reaction Allergy Type Onset Date Status metoclopramide Reglan Unknown Drug Allergy Ac tive Medicinal cephalosporin and acting as antibacterial agent (FN) Cephalosporins Unknown Drug Allergy Active clindamycin Clindamycin Unknown Drug Allergy Act francine Penicillin Unknown Drug Allergy Active Substance with sulfonamide structure and antibacterial mechanism of action (substance) Sulfa Antibiotics Unknown Drug Allergy Active Reason For Referral No Information Medications Medication SIG (Take, Route, Frequency, Duration) Notes Start Date End Date Status hydrOXYzine Pamoate 25 MG Oral for 90 Days Active glipiZIDE 5 MG TAKE 1 TABLET BY CAPRICE TH TWICE A DAY BEFORE MEALS Oral for 90 Days Active Diclofenac Sodium 75 MG Oral for 30 Days Active Metoprolol Succinate ER 25 MG Oral for 90 Days Active Montelukast Sodium 10 MG Oral for 90 Days Active Topiramate 25 MG TAKE 1 TABLET BY CAPRICE TH TWICE A DAY Oral for 90 Days Active Pregabalin 100 MG TAKE 1 CAPSULE(S) TW O TIMES A DAY Oral for 30 Days Active Ozempic (0.25 or 0.5 MG/DOSE) 2 MG/3ML Subcutaneous for 30 Days Active Potassium Chloride ER 20 MEQ Oral for 90 Days Active Escitalopram Oxalate 20 MG TAKE 1 TABLET (S) BY MOUTH AT BEDTIME Oral for 90 Days Active rOPINIRole HCl 1 MG Oral for 90 Days Active metFORMIN HCl ER 500 MG Oral for 90 Days Active Tresiba FlexTouch 100 UNIT/ML Subcutaneous for 75 Days Act francine Omeprazole 20 MG Oral for 90 Days Active Magnesium Oxide 400 MG TAKE 1 TABLET BY MOUTH EVERY DAY Oral for 90 Days Active Furosemide 20 MG TAKE 1 TABLET BY CAPRICE TH EVERY DAY Oral for 90 Days Active Levothyroxine Sodium 137 MCG Oral for 90 Days Active Social History Tobacco Use: Social History Observation Description Date Details (start date - stop date) Never Smoker NA - NA Tobacco Use/Smoking Question Answer Notes Tobacco use: nonsmoker Problems Problem Type SNOMED Code ICD Code Onset Dates Problem Status W/U Status Risk Notes Problem [id number] Non-pressure chronic ulcer of other part of left foot with fat layer exposed (L97.522) Active confirmed Problem Diabetic peripheral neuropathy (184255797) Diabetic peripheral neuropathy (E11.42) Active confirmed Vital Signs Weight-kg 81.65 kg 08/13/2024 Height 67 in 08/13/2024 Weight 180 lbs 08/13/2024 BMI 28.19 kg/m2 08/13/2024 Encounters Encounter Location Date Provider Diagnosis Matthew Aguilar Dpm [facility] [address] [id number] 11/07/2023 Fanny Collins Nail dystrophy L60.3 and Diabetic peripheral neuropathy E11.42 Matthew Aguilar Dpm [facility] [address] [id number] 01/16/2024 Fanny Collins Nail dystrophy L60.3 ; Callus L84 and Diabetic peripheral neuropathy E11.42 Matthew Aguilar Dpm [facility] [address] [id number] 08/13/2024 Fanny Collins Nail dystrophy L60.3 ; Callus L84 and Diabetic peripheral neuropathy E11.42 Assessments Encounter Date Diagnosis (ICD Code) Assessment Notes Treatment Notes Treatment Clinical Notes Section Notes 11/07/2023 Nail dystrophy (ICD-10 - L60.3) Manual surgical and electric debridement of toenails 1-5 b/l by 25% to achieve reduction in length and thickness. 01/16/2024 Nail dystrophy (ICD-10 - L60.3) 01/16/2024 Callus (ICD-10 - L84) Pared callus(es) x1 with sterile 15 blade to fibrous base. No ulcer(s). 08/13/2024 Nail dystrophy (ICD-10 - L60.3) 08/13/2024 Callus (ICD-10 - L84) Pared callus(es) x1 with sterile 15 blade to fibrous base. No ulcer(s). 01/16/2024 Diabetic peripheral neuropathy (ICD-10 - E11.42) 11/07/2023 Diabetic peripheral neuropathy (ICD-10 - E11.42) 08/13/2024 Diabetic peripheral neuropathy (ICD-10 - E11.42) Plan Of Treatment Next Appt Details Provider Name:Fanny lai, 10/22/2024 03:30:00 PM, [address] [address], [place], [place], [id number], Insurance Providers Payer Name Payer Address Payer Phone Subscriber Number Group Number Insured Name Patient Relationship to Insured Coverage Start Date Coverage End Date [place] Medicare [address] [place] [address] [id number] Shy Zimmerman Self - patient is the insured [facility] [address] [address] [place] [address] [id number] Shy Zimmerman Self - patient is the insured Medical (General) History Medical History History ICD Code asthma depression diabetes high blood pressure high cholesterol lung disorder Surgical History Surgery Date(Month/Year) bladder cholecystectomy d&c tubal ligation
--- OUTSIDE RECORDS SUMMARY | 2024-09-18 10:14 | XMS_ITS | Referral Summary ---
Author Organization [facility] Address [facility]ly [facility] [place] [address] Care Team Providers Care Coffee Maker Name Role Phone Mague Cuenca MD Primary Care Provider Allergies Active Allergy Reactions Criticality Noted Date Comments Amoxicillin Rash Medium 10/27/2016 Cephalexin Rash Medium 05/04/2016 Metoclopramide Other (See comments) Low 05/03/2016 freaked out climbing out of the love Sulfa (Sulfonamide Antibiotics) Other (See comments) Low 05/03/2016 Ankle swell Medications calcium carb/vit D3/minerals (CALCIUM-VITAM IN D ORAL) Take 2 tablets by mouth daily Active multivitamin with minerals tablet Take 1 tablet by mouth daily Active uhaws-3-wla-ep a-dpa-fish oil 1,050-1,200 mg capsule Take 2 capsules by mouth 2 (two) times a day 8 Active atorvastatin (LIPITOR) 40 mg tablet Take 1 tablet (40 mg total) by mouth daily 1 Active levothyroxine (SYNTHROID) 112 mcg tablet Take 125 mcg by mouth youth nutritional monitor before breakfast 8 Active montelukast (SINGULAIR) 10 mg tablet Take 1 tablet (10 mg total) by mouth daily 0 Active omeprazole (PriLOSEC) 20 mg capsule Take 1 capsule (20 mg total) by mouth 2 (two) times a day Active pregabalin (LYRICA) 100 mg capsule Take 1 capsule (100 mg total) by mouth 3 (three) times a day 1 Active rOPINIRole (REQUIP) 0.5 mg tablet Take 1 tablet (0.5 mg total) by mouth nightly 8 Active Ozempic 1 mg/dose (2 mg/1.5 mL) pen injector INJECT 1 MG SUBCUTANEOUSLY ONCE WEEKLY ON THE SAME DAY EACH WEEK IN THE ABDOMEN THIGHS OR UPPER ARM ROTATING INJECTION SITES 1 Active furosemide (LASIX) 20 mg tablet Take 1 tablet (20 mg total) by mouth 2 (two) times a day Active TRESIBA 200 unit/mL (3 mL) pen for injection INJECT 70 UNITS INTO THE SKIN NIGHTLY AT BEDTIME. 4 Active Active Problems Problem Noted Date Diagnosed Date Sarcoidosis Social History Tobacco Use Types Packs/Day Years Used Date Smoking Tobacco: Never Smokeless Tobacco: Never AUDIT-C Answer Date Recorded Q1: How often do you have a drink containing alc ohol? Monthly or less 12/05/2023 Q2: How many drinks containi ng alcohol do you have on a typical day when you are drinking? 3 or 4 12/05/2023 Frequency of Binge Drinking Not on file 11/23 Personal Safety Answer Date Recorded Have you ever been in or are you currently in a harmful physical or emotional relationship or is someone making you feel afraid or unsafe? 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 Gender Identity Not on file Sexual Orientation Not on file Last Filed Vital Signs Vital Sign Reading Time Taken Comments Blood Pressure 118/70 12/05/2023 2:50 PM CDT Pulse 65 12/05/2023 2:50 PM CDT Temperature 36.6 C (97.9 F) 12/05/2023 1:52 PM CDT Respiratory Rate 11 12/05/2023 2:50 PM CDT Oxygen Saturation 97% 12/05/2023 2:50 PM CDT Inhaled Oxygen Concentration - - Weight 76.2 kg (168 lb) 12/05/2023 1:52 PM CDT Height 170.2 cm (5' 7 ) 12/05/2023 1:52 PM CDT Body Mass Index 26.31 12/05/2023 1:52 PM CDT Plan of Treatment Not on file Insurance T SENIOR SUPPLEMENT MEDICARE MEDICARE [facility] SENIOR SUPPLEMENT Advance Directives For more information, please contact: [phone] * Full Code (Latest Code Status on File) Date Activated Date Inactivated Comments 12/05/2023 1:29 PM 12/05/2023 7:44 PM Care Teams Coffee Maker Relationship Specialty Start Date End Date Mague Cuenca MD [address] [place] [address] PCP - General Family Medicine 06/27/20
--- OUTSIDE RECORDS SUMMARY | 2024-09-18 10:14 | XMS_ITS | Data Portability ---
Author Organization [facility] [place] [facility], [id number] Address [address] [place] [address] Assessment No assessment recorded. Plan of Treatment Reminders Order Date Submit Date Provider Last Modified By Organization Details Last Modified Time Details Appointments ANNUAL- EST 15 2025 02:00P M RAISSA VERGARA CNM Not available Not available Not available Lab None recorded. Referral None recorded. Procedures None recorded. Surgeries None recorded. Imaging MAMMO, screening , digital, bilateral 2024 025 [email or web address] [facility], [facility] [place], [address], 08/31/2024 11:57:40 Medication Orders None recorded. Patient TargetsNo targets recorded. Patient InstructionsNo instructions recorded. Reason for Referral None Reported. Problems Name Problem SNOMED Code Status Onset Date Resolution Date Notes Provider Name and Address Organization Details Recorded Time Anxiety 29415887 Active 2024 Tory Weems [facility] [place] [facility] 12:26:32 Mixed anxiety and depressive disorder 380287613 Active 2024 Tory Weems [facility] 12:26:40 Benign essential hypertensi on 4879238 Active Hypertens ion, Problem Code: 401.1; Problem Code Type: ICD-9; Not Available [facility] 12:20:52 Anxiety state 996590946 Active Anxiety Disorder, Generaliz ed, Problem Code: 300.00; Problem Code Type: ICD-9; Not Available [facility] 12:20:52 Type 2 diabetes mellitus without complicati on 763547537 Active Diabetes, Type 2, Problem Code: 250.00; Problem Code Type: ICD-9; Not Available [facility] 12:20:53 Sarcoidosi s 68395382 Active Sarcoidos is, Problem Code: 135; Problem Code Type: ICD-9; Not Available [facility] 12:20:53 Hypothyroi dism 50027226 Active Hypothyro idism, Problem Code: 244.9; Problem Code Type: ICD-9; Not Available [facility] 12:20:53 Atypical glandular cells on cervical Papanicola ou smear 604532937 Active Abnormal PAP Smear, abn pap 2020 Problem Code: 795.00; Problem Code Type: ICD-9; Startdate : '08/06/13' ; Not Available [facility] 12:20:53 Chronic depressive personalit y disorder 633875489 Active Depressio n, Problem Code: 301.12; Problem Code Type: ICD-9; Not Available [facility] 12:20:53 Problem Notes None recorded. Procedures Surgical History Date Name Laterality Status Provider Name and Address Organization Details Recorded Time 04/25/19 24 Date of Last Mammogram completed [facility] 08/17/2024 12:27:06 07/18/19 22 Date of Last Pap Smear completed [facility] 08/17/2024 12:26:48 04/25/19 21 Date of Last Colonoscopy completed [facility] 08/17/2024 12:27:32 Colonoscopy completed [facility] 08/17/2024 12:17:39 Laparoscopic cholecystectomy completed Not Available [facility] 08/23/2024 14:10:07 dilation and curettage completed Not Available [facility] 08/23/2024 14:10:07 laparoscopic sterilization completed Not Available [facility] 08/23/2024 14:10:07 colposcopy completed Not Available [facility] 08/23/2024 14:10:07 endoscopy completed Not Available [facility] 08/23/2024 14:10:07 colonoscopy completed Not Available [facility] 08/23/2024 14:10:07 Imaging Results None recorded. Procedure Notes None recorded. Medical Equipment None Reported. Allergies Allergen ID Allergen Name Allergen Category Reaction Reaction Severity Criticality Documentation Date Start Date Code Code System Note Provider Name and Address Organization Details Recorded Time 471252 Product containin g penicilli n (product) medicatio n Not available Not available Not available 08/17/2024 97375 8001 SNOMED Tory Weems null, [facility] for [facility] 5 12:17:23 368054 Substance with sulfonami de structure and antibacte rial mechanism of action (substanc e) medicatio n Not available Not available Not available 08/17/2024 51053 8003 SNOMED Tory Weems [facility], [facility] for [facility] 5 12:17:23 982632 amoxicill in medicatio n Not available Not available Not available 08/17/2024 723 RxNorm Tory Weems [facility], [facility] for [facility] 5 12:17:23 491731 sulfur medicatio n Not available Not available Not available 08/23/2024 10297 RxNorm Not Available [facility] 5 12:28:14 547353 Keflex medicatio n rash Not available Not available 08/23/2024 69540 7 RxNorm Not Available [facility] 5 12:28:14 469582 Reglan medicatio n Not available Not available Not available 08/23/2024 9230 RxNorm NOTE: Aller gyRea ction : 'clim génesis the love '; Not Available [facility] 5 12:28:15 Medications Name Sig Start Date Stop Date Status Note LastModified by Organization Details LastModified Time losartan 50 mg tablet TAKE 1 TABLET BY MOUTH TWICE A DAY active Not Available Not Available No t Available levothyroxi ne 137 mcg tablet TAKE 1 TABLET BY MOUTH EVERY DAY IN THE MORNING active Not Available Not Available No t Available doxycycline hyclate 100 mg capsule TAKE 1 CAPSULE BY MOUTH TWICE A DAY 08/17 completed Not Available Not Available Not Available ropinirole 1 mg tablet TAKE 1 TABLET BY MOUTH EVERY DAY 1 TO 3 HOURS BEFORE BEDTIME active Not Available Not Available No t Available azithromyci n 250 mg tablet TAKE 2 TABLETS BY MOUTH TODAY, THEN TAKE 1 TABLET DAILY FOR 4 DAYS DIRECTED 08/17 completed Not Available Not Available Not Available prednisone 20 mg tablet 2 TABS ORALLY ONCE A DAY 08/17 completed Not Available Not Available Not Available moxifloxaci n 400 mg tablet TAKE 1 TABLET BY MOUTH EVERY DAY 08/17 completed Not Available Not Available Not Available topiramate 25 mg tablet TAKE 1 TABLET BY MOUTH TWICE A DAY active Not Available Not Available No t Available omeprazole 40 mg capsule,del ayed release TAKE 1 CAPSULE BY MOUTH TWICE A DAY active Not Available Not Available No t Available polymyxin B sulfate 10,000 unit-trimet hoprim 1 mg/mL eye drops INSTILL 1 DROP INTO AFFECTED EYE 4 TIMES A DAY 08/17 completed Not Available Not Available Not Available diclofenac sodium 75 mg tablet,jose yed release TAKE 1 TABLET(S) BY MOUTH TWO TIMES A DAY NEEDED FOR PAIN active Not Available Not Available No t Available montelukast 10 mg tablet TAKE 1 TABLET BY MOUTH EVERY DAY IN THE EVENING active Not Available Not Available No t Available metoprolol succinate ER 25 mg tablet,exte nded release 24 hr TAKE 1 TABLET BY MOUTH EVERYDAY AT BEDTIME active Not Available Not Available No t Available metformin ER 500 mg tablet,exte nded release 24 hr TAKE 1 TABLET BY MOUTH TWICE A DAY active Not Available Not Available No t Available dicyclomine 10 mg capsule TAKE 1 CAPSULE BY MOUTH 4 TIMES DAILY NEEDED. active Not Available Not Available No t Available hydroxyzine pamoate 25 mg capsule TAKE 1 CAPSULE(S ) BY MOUTH EVERY NIGHT AT BEDTIME . active Not Available Not Available No t Available escitalopra m 10 mg tablet TAKE 1 TABLET BY MOUTH EVERYDAY AT BEDTIME active Not Available Not Available No t Available rosuvastati n 10 mg tablet TAKE 1 TABLET(S) BY MOUTH EVERY NIGHT AT BEDTIME active Not Available Not Available No t Available bupropion HCl XL 150 mg 24 hr tablet, extended release TAKE 1 TABLET BY MOUTH EVERY DAY IN THE MORNING active Not Available Not Available No t Available pregabalin 100 mg capsule TAKE 1 CAPSULE (100 MG TOTAL) BY MOUTH THREE TIMES DAILY. active Not Available Not Available No t Available pregabalin 150 mg capsule TAKE 1 CAPSULE BY MOUTH THREE TIMES A DAY 08/17 completed Not Available Not Available Not Available BD Ultra-Fine Short Pen Needle 31 gauge x 5/16 USE ONCE DAILY DIRECTED active Not Available Not Available No t Available potassium chloride ER 20 mEq tablet,exte nded release TAKE 1 TABLET BY MOUTH EVERY DAY WITH FOOD active Not Available Not Available No t Available Tresiba FlexTouch U-200 insulin 200 unit/mL (3 mL) subcutaneou s pen INJECT 70 UNITS INTO THE SKIN NIGHTLY AT BEDTIME. active Not Available Not Available No t Available Ozempic 1 mg/dose (4 mg/3 mL) subcutaneou s pen injector INJECT 1 MG INTO SKIN ONCE WEEKLY active Not Available Not Available No t Available Vitals Date Recorded Body height Body mass index (BMI) Body weight Systolic And Diastolic Provider Name and Address Organization Details Last Updated DateTime 08/17/2024 170.18 cm 28.2 kg/m2 73494.35 g 128/84 mm[Hg] Tory Weems [facility] [place] [facility] 08/17/2024 12:24:09 Social History Question Answer Notes LastModified by [employer] Details LastModified Time Tobacco Smoking Status Never Smoker Tory Weems [facility] 08/17/2024 12:17:35 Do You Have An Advance Directive? Yes [email or web address] Information not available 08/17/2024 If You Are , What Was Your Level Of Alcohol Consumption Prior To ? None [email or web address] Information not available 08/17/2024 What Is Your Level Of Caffeine Consumption? Moderate [email or web address] Information not available 08/17/2024 What Type Of Diet Are You Following? REGULAR [email or web address] Information not available 08/17/2024 What Is Your Relationship Status? Information not available 08/17/2024 Sex: Female Functional Status Question Answer Note LastModified by Organizat ion Details LastModified Time Do you use any illicit or recreational drugs? No [email or web address] Information not available 08/17/2024 What is your level of alcohol consumption? Occasional [email or web address] Information not available 08/17/2024 Are you currently employed? 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 Note: retired - still works 3 days a week at in [email or web address] Information not available 08/23/2024 Mental Status None recorded. Family History Relationship Description Onset Age of this Age Resolved Age Notes LastModified by Organization Details LastModified Time Paternal Grandmother Depressive disorder [email or web address] Not available 08/17 12:17:27 Brother Hypertensive disorder [email or web address] Not available 08/17 12:17:27 Brother Heart disease [email or web address] Not available 08/17 12:17:27 Brother Diabetes mellitus [email or web address] Not available 08/17 12:17:27 Sister Malignant tumor of breast [email or web address] Not available 08/17 12:17:27 Sister Depressive disorder Not available 08/17 12:17:27 Maternal Grandfather Heart disease [email or web address] Not available 08/17 12:17:27 Father Hypertensive disorder [email or web address] Not available 08/17 12:17:27 Father Heart disease [email or web address] Not available 08/17 12:17:27 Father Diabetes mellitus [email or web address] Not available 08/17 12:17:27 Brother Mixed hypercholest erolemia and hypertriglyc eridemia Elevat ed Choles terol/ Trigly ceride s Not available 08/23/2024 14:47:16 Brother Hypertensive disorder High Blood Pressu re son Not available 08/23/2024 14:47:17 Brother Diabetes mellitus Diabet es Not available 08/23/2024 14:47:18 Sister Malignant neoplastic disease Cancer sis-br east,a unt-br east,a unt-st omach Not available 08/23/2024 14:47:17 Sister Family history of breast cancer Family histor y of breast cancer Not available 08/23/2024 14:47:17 Unspecified Relation Family history of breast cancer Family histor y of breast cancer Relati ve: 'Aunt' ; Not available 08/23/2024 14:47:17 Father Kidney disease Kidney Proble ms fa-gagan lysis Not available 08/23/2024 14:47:18 Medical History Condition Response Psych- Anxiety Disorder Y Cancer- Genetic screening GI- Irritable Bowel Syndrome Y ID-Other Y Pulmonary- Sleep Apnea Y Endocrinology- Hypothyroidism Y Neurology-Other Y Psych- Depression Y Cardiology- High Cholesterol Y Endocrinology- Thyroid Problems Y Endocrinology- Diabetes Y Cardiology- High Blood Pressure Y Gynecological History Statement/Question Response History of PCOS N History of Fibroids N Date of Last Mammogram 04/25/2023 History of Infertility N History of Cervical Dysplasia N Current Control Method: Abstinence History of Vulvar Dysplasia N Current Control Method Age at Menarche 10 History of Recurrent Ovarian Cysts N If Post Menopausal, Age at Menopause 1 History of Endometriosis N Date of Last Colonoscopy 04/25/2020 Sexually Active? N History of Abnormal PAP Y History of Dysmenorrhea N Menses Monthly N Date of Last HPV Test 07/17/2021 Date of Last Pap Smear 07/17/2021 History of Sexually Transmitted Infectio n N Date of Last Cholesterol Screening 04/25 Date of Last Bone Density 2024 Obstetrics History GPAL:G 4 P 3 0 1 3 Type Value Full Term 3 Spontaneous 1 Living 3 Total 4 Past Encounters Encounter ID Performer Location Encounter Start Date Encounter Closed Date Diagnosis/Indication Diagnosis SNOMED-CT Code Diagnosis ICD10 Code Diagnosis Note [id number] [address], [place] [id number] [facility] [address] [place] [address] 08/17/2024 12:12:12 08/17/2024 14:41:07 Screening mammography 48040632 Z12.31 Routine gy necologic examination 902889055 Z01.419 Health Concerns Section Related Observation LastModified by Organization Detai ls LastModified Time None Recorded Concern Status LastModified by Organization Details LastModified Time None Recorded Advance Directives Directive Y: Payers Insurance Date Sequence Insurance Name Policy Number Policy Zamorano Covered Member ID Zamorano Member ID Guarantor Name 08/17/2024 1 [place] Shy Zimmerman [id number] Shy Zimmerman 08/23/2024 2 [employer] (MEDICARE SUPPLEMENT) Shy Zimmerman [id number] Shy Zimmerman 08/17/2024 1 [place] Shy Zimmerman [id number] Shy Zimmerman Notes Date Note Type Note Provider Name and Address Organization Details Recorded Time 08/17/2024 text/html Annual Postmenopausal ([facility])Reported bypatient.Patient Relationship To Practice:established patient Current Medical History:no active medical problems Menopausal Symptoms:not present HRT:never on HRT Vaginal Bleeding:no Sexually Active:No: by choice STI Screen:declines Health/Prevention:Ex ercise: yes; Vitamin D: yes; Adequate Calcium Intake: yes; Breast Self Exam: yes Mammogram:due Pap Smear +/- HPV Cotesting:not applicable Thyroid/Lipid Screening:up-to-date Colonoscopy:up-to-da te Bone Density Study:up-to-date Patient has:Primary Care Physician: yesNotes:States that has been talking with her PCP about her shakes and they were blaming her meds- discussed neurology and she states that she is established with a neurologist so will reach out to them about it Patient is here for routine annual exam. Patient states her biggest problem right now is her hands shaking so bad and she is always off balance. RAISSA VERGARA [facility] [address], [place], [address], [facility] [place] [facility] 08/17/2024 12:54:17 OBGyn Episode No OBEpisode recorded.
--- OUTSIDE RECORDS SUMMARY | 2024-09-18 10:14 | XMS_ITS | Clinical Summary ---
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 8 Active montelukast (SINGULAIR) 10 [...] Problems Problem Noted Date Diagnosed Date Sarcoidosis Surgical History Surgery Date Site/Laterality Comments TUBAL LIGATION CHOLECYSTECTOMY BLADDER SUSPENSION Medical History Medical History Date Comments GERD (gastroesophageal reflux disease) Hypertension Hyperlipidemia Diabetes mellitus type I (HCC) Family History Medical History Relation Name Comments Diabetes Father Heart disease Father Cancer Mother Relation Name Status Comments Father Mother Social History Tobacco Use Types Packs/Day Years [...] on file Legal Sex Female 8:54 PM [employer]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[employer] Gender Identity Not on file Sexual Orientation Not on file Obstetrics History Last Filed Vital Signs Vital Sign Reading [...] 12/05/2023 1:52 PM CDT Plan of Treatment Health Maintenance Due Date Last Done Comments Colon Cancer Screening-Colonoscopy 1955 Depression Screening 1955 Hepatitis C Screening 1955 Osteoporosis Screening-Bone Density Scan 1955 Hepatitis B Screening 11/28/1971 Well Visit 65+ 2018 Breast Cancer Screening-Mammogram 12/22/2022 022, 12/22/2021 Fall Risk Assessment 12/04/2024 12/05/2023 Influenza Vaccine (Season Ended) 2024 04/22/2020, 04/10/2019, 01/26/2018, Additional history exists DTaP/Tdap/Td Vaccine (2 - Td or Tdap) 10/25/2027 10/24/2017 Zoster Vaccine Completed 10/19/2018, 08/08/2017 Pneumococcal vaccine 65+ Completed 020, 02/07/2017, 02/07/2017, Additional history exists Insurance [employer] SENIOR SUPPLEMENT MEDICARE MEDICARE [employer] SENIOR SUPPLEMENT Advance Directives For more information, please contact: [phone] * Full Code (Latest Code Status on File) Date Activated Date Inactivated Comments 12/05/2023 1:29 PM 12/05/2023 7:44 PM Care Teams Dowel Pin Worker Relationship Specialty Start Date End Date Mague Cuenca MD [address] [place] [address] PCP - General Family Medicine 06/27/20
--- OUTSIDE RECORDS SUMMARY | 2024-09-18 10:15 | XMS_ITS | Data Portability ---
Author Organization [facility], Main Office Address [address] [place] [address] Assessment No assessment recorded. Plan of Treatment Reminders Order Date Submit Date Provider Last Modified By Organization Details Last Modified Time Details Appointments None recorded. Lab lipid panel, serum 2022 023 [facility] (Lab), [address] [place], [address], 3 11:16:24 CMP, serum or plasma 2022 023 [facility] (Lab), [address] [place], [address], 3 11:11:21 HbA1c (hemoglobin A1c), blood 2022 023 [facility] (Lab), [address] [place], [address], 3 11:16:25 microalbumi n/creatinin e, mass ratio, urine 2022 023 [facility] (Lab), [address] [place], [address], 3 11:16:24 T3, free, serum or plasma 2022 023 [facility] (Lab), [address] [place], [address], 3 11:16:24 TSH + free T4, serum 2022 023 [facility] (Lab), [address] [place], [address], 3 11:11:21 Referral None recorded. Procedures None recorded. Surgeries None recorded. Imaging None recorded. Medication Orders Trulicity 3 mg/0.5 mL subcutaneou s pen injector [address]/Pharmacy #[id number], [address] [place], [address], 4 09:22:55 Farxiga 5 mg tablet [address]/Pharmacy #[id number], [address] [place], [address], 4 09:20:21 Trulicity 1.5 mg/0.5 mL subcutaneou s pen injector [address]/Pharmacy #[id number], [address] [place], [address], 4 09:22:50 Patient TargetsNo targets recorded. Patient InstructionsNo instructions recorded. Reason for Referral None Reported. Results Created Date Observation Date Name Description Value Unit Range Abnormal Flag Note LastModifiedBy Organization Detail LastModifiedTime Result Notes None recorded. Problems Name Problem SNOMED Code Status Onset Date Resolution Date Notes Provider Name and Address Organization Details Recorded Time Disorder of shoulder 740824126 Active Not Available [facility] 3 13:52:38 Shoulder stiff 631245842 Active Not Available [facility] 3 13:52:38 Shoulder joint pain 749526269 Active Not Available [facility] 3 13:52:38 Adhesive capsulitis of shoulder 703549735 Active Not Available [facility] 3 13:52:38 Uncontrolled type 2 diabetes mellitus 858825365 Active 2022 Maddy Mera MD [address] [address], [place], [address] , [facility] 3 10:27:44 Hypothyroidis m 21353200 Active 2022 Maddy Mera MD [address], [place], [address] , [facility] 3 10:38:06 Dyslipidemia 620152995 Active 2022 Maddy Mera MD [address], [facility] [address], [place], [address] , [facility] 3 10:38:17 Problem Notes None recorded. Medical Equipment None Reported. Allergies Allergen ID Allergen Name Allergen Category Reaction Reaction Severity Criticality Documentation Date Start Date Code Code System Note Provider Name and Address Organization Details Recorded Time 72155 Reglan medicatio n Not available Not available Not available 11/04/2022 9230 RxNorm [facility] 3 12:40:37 12717 Substance with sulfonami de structure and antibacte rial mechanism of action (substanc e) medicatio n Not available Not available Not available 11/04/2022 47107 8003 SNOMED [facility] 3 12:40:44 53347 Product containin g penicilli n (product) medicatio n Not available Not available Not available 11/04/2022 28886 8001 SNOMED [facility]a [facility] 3 12:41:24 Medications Name Sig Start Date Stop Date Status Note LastModified by Organization Details LastModified Time losartan 50 mg tablet TAKE 1 TABLET BY MOUTH TWICE A DAY 01/08 completed Not Available Not Available Not Available atorvastati n 40 mg tablet TAKE 1 TABLET BY MOUTH EVERY DAY 11/04 completed Not Available Not Available Not Available levothyroxi ne 137 mcg tablet TAKE 1 TABLET BY MOUTH EVERY DAY IN THE MORNING 01/08 completed Not Available Not Available Not Available nystatin 100,000 unit/mL oral suspension 11/04 completed Not Available Not Available Not Available venlafaxine ER 75 mg capsule,ext ended release 24 hr 11/04 completed Not Available Not Available Not Available doxycycline hyclate 100 mg capsule TAKE 1 CAPSULE BY MOUTH TWICE A DAY 11/04 completed Not Available Not Available Not Available atorvastati n 20 mg tablet 11/04 completed Not Available Not Available Not Available ropinirole 1 mg tablet TAKE 1 TABLET(S) BY MOUTH EVERY NIGHT AT BEDTIME 01/08 completed Not Available Not Available Not Available atorvastati n 10 mg tablet 11/04 completed Not Available Not Available Not Available azithromyci n 250 mg tablet 11/04 completed Not Available Not Available Not Available glyburide 5 mg tablet 01/08 completed Not Available Not Available Not Available fluconazole 150 mg tablet 11/04 completed Not Available Not Available Not Available valacyclovi r 1 gram tablet 11/04 completed Not Available Not Available Not Available hydrocodone 5 mg-acetamin ophen 325 mg tablet TAKE 1 TABLET BY MOUTH EVERY 4 TO 6 HOURS NEEDED FOR PAIN 11/04 completed Not Available Not Available Not Available prednisone 20 mg tablet TAKE 2 TABLETS BY MOUTH EVERY DAY WITH FOOD 11/04 completed Not Available Not Available Not Available isosorbide mononitrate ER 30 mg tablet,exte nded release 24 hr 01/08 completed Not Available Not Available Not Available penicillin V potassium 500 mg tablet 11/04 completed Not Available Not Available Not Available ciprofloxac in 250 mg tablet 11/04 completed Not Available Not Available Not Available valacyclovi r 500 mg tablet 11/04 completed Not Available Not Available Not Available tramadol 50 mg tablet TAKE 1 TABLET BY MOUTH THREE TIMES A DAY NEEDED 01/08 completed Not Available Not Available Not Available triamcinolo ne acetonide 0.1 % topical cream APPLY A SMALL AMOUNT TOPICALLY TO AFFECTED AREAS TWICE A DAY X 7- 10 DAYS 11/04 completed Not Available Not Available Not Available lamotrigine 25 mg tablet TAKE 1 TABLET(S) BY MOUTH EVERY NIGHT AT BEDTIME 01/08 completed Not Available Not Available Not Available levothyroxi ne 75 mcg tablet 11/04 completed Not Available Not Available Not Available levothyroxi ne 100 mcg tablet 11/04 completed Not Available Not Available Not Available hydrocortis one 2.5 % topical cream with perineal applicator APPLY TO AFFECTED AREA TWICE A DAY 11/04 completed Not Available Not Available Not Available levothyroxi ne 88 mcg tablet 11/04 completed Not Available Not Available Not Available magnesium oxide 400 mg (241.3 mg magnesium) tablet TAKE 1 TABLET BY MOUTH EVERY DAY 01/08 completed Not Available Not Available Not Available gabapentin 800 mg tablet 11/04 completed Not Available Not Available Not Available OneTouch Ultra Test strips USE TO CHECK BLOOD SUGARS DAILY 01/08 completed Not Available Not Available Not Available doxycycline monohydrate 100 mg capsule 11/04 completed Not Available Not Available Not Available ferrous sulfate 325 mg (65 mg iron) tablet TAKE 1 TABLET BY MOUTH EVERY DAY 01/08 completed Not Available Not Available Not Available metformin 1,000 mg tablet TAKE 1 TABLET BY MOUTH TWICE A DAY 07/20 completed Not Available Not Available Not Available levothyroxi ne 125 mcg tablet TAKE 1 TABLET BY MOUTH EVERY DAY 11/04 completed Not Available Not Available Not Available ropinirole 0.5 mg tablet 01/08 completed Not Available Not Available Not Available prednisone 50 mg tablet 11/04 completed Not Available Not Available Not Available omeprazole 20 mg capsule,del ayed release TAKE 1 CAPSULE BY MOUTH TWICE A DAY 01/08 completed Not Available Not Available Not Available diclofenac sodium 75 mg tablet,jose yed release 01/08 completed Not Available Not Available Not Available montelukast 10 mg tablet TAKE 1 TABLET BY MOUTH EVERY EVENING 01/08 completed Not Available Not Available Not Available hydrochloro thiazide 25 mg tablet 11/04 completed Not Available Not Available Not Available mupirocin 2 % topical ointment APPLY TOPICALLY DAILY FOR 10 DAYS. 11/04 completed Not Available Not Available Not Available furosemide 20 mg tablet TAKE 1 TABLET BY MOUTH EVERY DAY 01/08 completed Not Available Not Available Not Available gabapentin 100 mg capsule 11/04 completed Not Available Not Available Not Available metoprolol succinate ER 25 mg tablet,exte nded release 24 hr TAKE 1 TABLET BY MOUTH NIGHTLY AT BEDTIME. 01/08 completed Not Available Not Available Not Available methylpredn isolone 4 mg tablets in a dose pack 11/04 completed Not Available Not Available Not Available losartan 100 mg tablet TAKE 1 TABLET BY MOUTH EVERY DAY 01/08 completed Not Available Not Available Not Available SF 5000 Plus 1.1 % dental cream 11/04 completed Not Available Not Available Not Available metformin ER 500 mg tablet,exte nded release 24 hr TAKE 1 TABLET BY MOUTH TWICE A DAY 01/08 completed Not Available Not Available Not Available doxycycline hyclate 100 mg tablet TAKE 1 TABLET BY MOUTH TWICE A DAY 11/04 completed Not Available Not Available Not Available dicyclomine 10 mg capsule TAKE 1 CAPSULE BY MOUTH 4 TIMES A DAY BEFORE MEALS AND NIGHTLY 01/08 completed Not Available Not Available Not Available glipizide 5 mg tablet TAKE 1 TABLET BY MOUTH TWICE A DAY BEFORE MEALS 01/08 completed Not Available Not Available Not Available naproxen 500 mg tablet 11/04 completed Not Available Not Available Not Available levothyroxi ne 112 mcg tablet 01/08 completed Not Available Not Available Not Available amoxicillin 875 mg-potassiu m clavulanate 125 mg tablet TAKE 1 TABLET BY MOUTH TWICE A DAY FOR 10 DAYS 11/04 completed Not Available Not Available Not Available nabumetone 500 mg tablet 01/08 completed Not Available Not Available Not Available tobramycin 0.3 %-dexametha sone 0.1 % eye drops,suspe nsion 11/04 completed Not Available Not Available Not Available escitalopra m 10 mg tablet TAKE 1 TABLET(S) BY MOUTH AT BEDTIME 01/08 completed Not Available Not Available Not Available escitalopra m 20 mg tablet TAKE 1 TABLET(S) BY MOUTH AT BEDTIME 11/04 completed Not Available Not Available Not Available Novolog Mix 70-30 FlexPen U-100 Insulin 100 unit/mL subcutaneou s pen 11/04 completed Not Available Not Available Not Available cyclobenzap rine 5 mg tablet TAKE 1 TABLET(S) THREE TIMES A DAY NEEDED 11/04 completed Not Available Not Available Not Available rosuvastati n 10 mg tablet TAKE 1 TABLET BY MOUTH EVERY NIGHT AT BEDTIME 01/08 completed Not Available Not Available Not Available nitrofurant oin monohydrate /macrocryst als 100 mg capsule 11/04 completed Not Available Not Available Not Available duloxetine 30 mg capsule,del ayed release 11/04 completed Not Available Not Available Not Available duloxetine 60 mg capsule,del ayed release 11/04 completed Not Available Not Available Not Available eszopiclone 1 mg tablet PLEASE SEE ATTACHED FOR DETAILED DIRECTION S 01/08 completed Not Available Not Available Not Available pregabalin 100 mg capsule TAKE 1 CAPSULE BY MOUTH 3 TIMES A DAY 01/08 completed Not Available Not Available Not Available pregabalin 150 mg capsule TAKE 1 CAPSULE(S ) THREE TIMES A DAY 01/08 completed Not Available Not Available Not Available BD Ultra-Fine Short Pen Needle 31 gauge x 5/ USE THREE TIMES DAILY E11.9 01/08 completed Not Available Not Available Not Available fenofibrate nanocrystal lized 145 mg tablet 01/08 completed Not Available Not Available Not Available olopatadine 0.2 % eye drops INSTILL 1 DROP IN AFFECTED EYE(S) EVERY DAY 11/04 completed Not Available Not Available Not Available Symbicort 160 mcg-4.5 mcg/actuati on HFA aerosol inhaler 11/04 completed Not Available Not Available Not Available Onglyza 5 mg tablet 01/08 completed Not Available Not Available Not Available Farxiga 5 mg tablet Take 1 tablet every day by oral route in the morning for 90 days. 01/08 completed Not Available Not Available Not Available potassium chloride ER 20 mEq tablet,exte nded release TAKE 1 TABLET BY MOUTH EVERY DAY 01/08 completed Not Available Not Available Not Available Trulicity 1.5 mg/0.5 mL subcutaneou s pen injector INJECT 1.5 MG EVERY WEEK BY SUBCUTANE OUS ROUTE AT DINNER FOR 90 DAYS. 01/08 completed Not Available Not Available Not Available Tresiba FlexTouch U-100 insulin 100 unit/mL (3 mL) subcutaneou s pen INJECT 70 UNITS INTO SKIN EVERY EVENING 01/08 completed Not Available Not Available Not Available Fluvirin 2016- (PF) 45 mcg (15 mcg x 3)/0.5 mL intramuscul ar syringe 01/08 completed Not Available Not Available Not Available Fiasp FlexTouch U-100 Insulin 100 unit/mL (3 mL) subcutaneou s pen INJECT 3 UNITS INTO SKIN 3 TIMES A DAY WITH EACH MEAL 01/08 completed Not Available Not Available Not Available Ozempic 0.25 mg or 0.5 mg (2 mg/1.5 mL) subcutaneou s pen injector TAKE 0.5 MILLIGRAM (S) SUBCUTANE OUS ONCE A WEEK 11/04 completed Not Available Not Available Not Available Trulicity 3 mg/0.5 mL subcutaneou s pen injector Inject 3 mg every week by subcutane ous route at dinner for 90 days. 01/08 completed Not Available Not Available Not Available Vitals Date Recorded Body weight Body temperature Heart rate Systolic And Diastolic Provider Name and Address Organization Details Last Updated DateTime 07/16/2022 99571.25 g 97 [degF] 72 /min 148/74 mm[Hg] BRIAN Sol [employer] [facility] [employer] 07/16/2022 10:07:56 Date Recorded Body weight Body temperature Heart rate Systolic And Diastolic Provider Name and Address Organization Details Last Updated DateTime 11/04/2022 85694 g 97.5 [degF] 86 /min 138/75 mm[Hg] BRIAN Sol [employer] 11/04/2022 12:40:14 Social History Question Answer Notes LastModified by Organizat ion Details LastModified Time Tobacco Smoking Status Never Smoker BRIAN Sol [facility] 07/16/2022 10:16:25 Do You Have An Advance Directive? No Information n ot available 07/16/2022 Are You Blind Or Do You Have Difficulty Seeing? No Information n ot available 07/16/2022 What Is Your Level Of Caffeine Consumption? Heavy Information not available 07/16/2022 In The 14 Days Before Symptom Onset, Have You Had Close Contact With A Laboratory-confirm ed COVID-19 While That Case Was Ill? No Information n ot available 07/16/2022 In The 14 Days Before Symptom Onset, Have You Had Close Contact With A Person Who Is Under Investigation For COVID-19 While That Person Was Ill? No Information not available 07/16/2022 Are You Deaf Or Do You Have Serious Difficulty Hearing? No Information not available 07/16/2022 What Type Of Diet Are You Following? REGULAR Information n ot available 07/16/2022 Have You Ever Been Counseled For Unhealthy Alcohol Use? No Information not available 07/16/2022 Has Tobacco Cessation Counseling Been Provided? No Information not available 07/16/2022 Have You Recently Traveled Abroad? No Information not available 07/16/2022 Do You Have Difficulty Walking Or Climbing Stairs? Yes Information not available 07/16/2022 Sex: Unknown Functional Status Question Answer Note LastModified by Organizat ion Details LastModified Time Do you use any illicit or recreational drugs? No Information not available 07/16/2022 Do you or have you ever used any other forms of tobacco or nicotine? No Information not available 07/16/2022 What is your level of alcohol consumption? Occasional Information not available 07/16/2022 Do you have transportation difficulties? No Information not available 07/16/2022 Are you able to walk? YESWOREST Information not available 07/16/2022 Do you have difficulty doing errands alone? No Information not available 07/16/2022 Are you able to care for yourself? Yes Information n ot available 07/16/2022 Do you have difficulty dressing or bathing? No Information not available 07/16/2022 What is your exercise level? Occasional Information not available 07/16/2022 Mental Status Question Answer Note LastModified by Organization D etails LastModified Time Do you have difficulty concentrating, remembering or making decisions? No Information no t available 07/16/2022 Family History Nothing Reported. Medical History Condition Response BLINDNESS N RHEUMATIC FEVER N MRSA N BACK INJECTIONS Y INFECTIOUS DISEASE N HEART ARRHYTHMIA Y LUNG DISEASE/DISORDER Y ESRD N INSOMNIA Y HISTORY OF DRUG ABUSE N RADIATION / CHEMOTHERAPY N COPD N HIGH CHOLESTEROL / HYPERLIPIDEMIA Y EYE PROBLEMS N HYPERTHYROIDISM N PVD N BLOOD DISEASES N EDEMA N SURGERY N HYPOTHYROIDISM N SHINGLES N DEPRESSION (INCLUDING POST ) Y HAVE YOU BEEN HOSPITALIZED OR SEEN IN [facility] IN THE PAST YEAR ? Y FAILED BACK SYNDROME N STROKE/TIA N THYROID DISEASE N BENIGN PROSTATIC HYPERPLASIA N POLYCYSTIC OVARIES N OBESITY N GERD/NAUSEA Y EXCESSIVE PERSPIRATION N ANEURYSM N OSTEOPOROSIS N Do you have Advance directive? N ARTHRITIS N USE OF BLOOD THINNERS N NO SIGNIFICANT PAST MEDICAL HISTORY N SKIN PROBLEMS N DIABETES, TYPE Y VON WILLIBRAND'S DISEASE N PARATHYROID DISEASE N BLOOD CLOTS N POST LAMINECTOMY SYNDROME N HEPATITIS / LIVER DISEASE N GOUT N ALZHEIMER'S DISEASE N ARTERIAL INSUFFICIENCY N HERPES N RETINOPATHY N HEADACHES/MIGRAINES N SEIZURES/EPILEPSY N GI PROBLEMS Y Low Testosterone N DIZZINESS N HEART DISEASE/HEART PROBLEMS N AIDS/HIV N KIDNEY DISEASE N LIVER DISEASE N MALE HYPOGONADISM N NEUROPSYCHOLOGICAL N HYPERTENSION Y CANCER: SPECIFY N TOURETTE'S N BLOOD TRANSFUSION Y ANEMIA/BLOOD DISORDER N ATRIAL FIBRILLATION N AUTOIMMUNE DISEASE Y TUBERCULOSIS N GLAUCOMA N Gynecological HistoryNo gynecological history recorded. Obstetrics History GPAL:G 0 P 0 0 0 0 Past Encounters Encounter ID Performer Location Encounter Start Date Encounter Closed Date Diagnosis/Indication Diagnosis SNOMED-CT Code Diagnosis ICD10 Code Diagnosis Note [id number] Maddy Mera MD [facility] [address] [place] [address] 07/16/2022 09:49:57 07/16/2022 11:37:42 Uncontrolled type 2 diabetes mellitus 307413968 E11.65 a1c of 9.9% from 02/13- patient unable to afford some of the newer generation therapies as they have very high costs- she did well on ozempic in past but did lose hunger suppressio n control over time. Will trial on trulicity as an alternativ e. Recommende d GLP1 agonist therapy as she is having trouble at times with cravings of sweets and portion control. Discussed potentiall y reducing total carb intake to 120 grams daily into 4-5 small split meals with addition of healthy protein based snack at bedtime to help reduce rn care transition hyperglyce merle. She has no hx of pancreatit is or medullary thyroid cancer and is willing to trial on a GLP1 agonist therapy. She was advised to contact clinic if she experience s any nausea, vomiting or significan t thyroid pain / swelling or abdominal pain so we can discuss and discontinu e and potentiall y look to other therapy. Will trial on trulicity 0.75 mg SQ weekly x 4 weeks then increase to 1.5 mg SQ weekly with largest meal of that day as tolerated. Encouraged patient to test sugars prebreakfa st and predinner and at times before bedtime to maintain log for review at return visit. Recommend she take her glimepirid e on glucose scale according to glucose checks. If sugars are running under 100 mg/dL hold glimepirid e, if 101-140 mg/dL take half tablet, if 141-180 mg/dL take full tablet and if over 180 mg/dL take 2 tablets for the full 4 mg of glimepirid e up to twice daily before meals. If sugars are consistent ly over 180 mg/dL she was advised to contact clinic and notify me so we can modify changes. Patient advised to bring glucose meter at return visit for review. Continue metformin for insulin sensitizat ion. Will not start on SGL2 inh due to recurrent yeast infections . Will transition to tresiba due to long acting duration of effect and decreased frequency of hypoglycem ia associated with it. Increase to 76 units once daily at bedtime and patient advised to titrate up by 8 units every 4 days until fasting glucose is running 90-120 mg/dL consistent ly. She was advised to follow a correction of 2U:50>200 mg/dl on premeal FS prior to meals. She has poor dietary habits and aware to restrict and cut down on her soda intake and at least try to walk 5 days a week and incorporat e more protein shakes into her busy days since she has many responsibi lities there are simple/hea lthy snacks and meal substitute s she can incorporat e for better glucose control. Hypothyroidism 63698737 E03.9 Continue LT4 125 mcg daily. She was reminded to take her LT4 on empty stomach with glass of water and wait one hour to eat or have her coffee in morning and up to 4 hours if ever taking any heartburn or reflux medication s to help optimize absorption . Discussed paleo like diet with restrictio n of GMOs to help with energy and to optimize absorption of vitamins and minerals and reduce inflammati on. Dyslipidemia 386955521 E 78.5 Send for lipid panel to assess need to modify therapy if needed. Spent up to 45 minutes preparing to see the patient (eg, review of tests), obtaining and/or reviewing separately obtained history, performing a medically appropriat e examinatio n and evaluation , counseling and educating the patient, ordering medication s, tests, along with documentin g clinical informatio n in the electronic health record, independen tly interpreti ng results and communicat ing results to the patient. RTC in 3 months. Patient was provided a handwritte n lab order which contains our fax number. If she chooses to go outside of the [facility] system to obtain labwork she was advised to provide our fax number and my informatio n to the lab she will be obtaining labwork from in order to have her labs properly forwarded over for me to review so there is no loss of follow up due to use of outside network. She was also advised to contact our clinic informing us that she has completed her labwork so we are aware we will need to reach out to the appropriat e laboratory to request her results be forwarded to us so I might have the ability to review and make further medical decision making in her case. She voiced understand ing. [id number] Maddy Mera MD [facility] [address] [place] [address] 11/04/2022 12:34:25 11/04/2022 14:16:56 Uncontrolled type 2 diabetes mellitus 651007049 E11.65 a1c of 10% up from 9.9% from 02/13- will uptitrate trulicity to 3 mg once weekly. Continue metformin for insulin sensitizat ion along with glyburide before meals. Continue on tresiba but patient aware she might need to drop down to 70 units at bedtime to avoid rn care transition lows and continue to increase or decrease by 6 units every 3-4 days until fasting glucose 90-130 mg/dL. Will add farxiga 5 mg daily - patient advised to drink adequate water up to 64 ozs per day due to loss of calories and sugar through renal excretion- she was advised to contact clinic with any concern of dizziness, lightheade dness, flank pain or urinary pain or discomfort that might suggest the need for a urinalysis . She voiced understand ing. She was advised to follow a correction of 2U:50>200 mg/dl on premeal FS prior to meals. Hypothyroidism 66337927 E03.9 Continue unithroid 137 mcg daily as FT4 in range. She was reminded to take her LT4 on empty stomach with glass of water and wait one hour to eat or have her coffee in morning and up to 4 hours if ever taking any heartburn or reflux medication s to help optimize absorption . Discussed paleo like diet with johnathan green of GMOs to help with energy and to optimize absorption of vitamins and minerals and reduce inflammati on. Spent up to 25 minutes preparing to see the patient (eg, review of tests), obtaining and/or reviewing separately obtained history, performing a medically appropriat e examinatio n and evaluation , counseling and educating the patient, ordering medication s, tests, along with documentin g clinical informatio n in the electronic health record, independen tly interpreti ng results and communicat ing results to the patient. Patient can be followed by PCP - she is aware of my resignatio n and last day of February 04. If needed her PCP can refer patient to another endocrinol ogist in the area. All questions /concerns answered and refills necessary at visit today. Health Concerns Section Related Observation LastModified by Organization Detai ls LastModified Time None Recorded Concern Status LastModified by Organization Details LastModified Time None Recorded Advance Directives Directive N: Payers Encounter Date Sequence Insurance Name Policy Number Policy Zamorano Covered Member ID Zamorano Member ID Guarantor Name 07/16/2022 1 [place] Shyida Zimmerman [id number] Shy Zimmerman 07/16/2022 2 [employer] (MEDICARE REPLACEMENT/A DVANTAGE - PPO) Shy Zimmerman [id number] Shy Zimmerman 11/04/2022 1 [place] Shyida Zimmerman [id number] Shy Zimmerman 11/04/2022 2 [employer] (MEDICARE SUPPLEMENT) Shy Zimmerman [id number] Shy Zimmerman Notes Date Note Type Note Provider Name and Address Organization Details Recorded Time 07/16/2022 text/html 66 yo female com es in as referral by courtesy of Dr. Cuenca for management of poorly controlled type 2 DM (A1C of 9.9%). To note she has hypothyroidism and dyslipidemia. She was diagnosed over 10 years ago. She drinks pepsi on a regular basis. She has tried to cut down but knows this affects her sugars consistently. She retired but works three days a week. Has her grandchildren who are 7 and 10 and helps with them a lot. She is currently taking metformin ER 500 mg twice daily along with tresiba 70 units at bedtime. She is on LT4 125 mcg daily for thyroid ds. She is on atorvastatin for dyslipidemia. She was on ozempic in the past and she lost 30 pounds and it ended up losing effect on patient. She is not testing her sugars as she cannot find her glucose meter. labs from 02/13:a1c of 9.9%glucose 239 mg/dLCr normal Complications:No CAD or stroke- does have PVCs-follows cardiology on metoprolollast eye exam: last exam earlier this year- no cataracts- no retinopathymild neuropathy - on lyrica for management of this Maddy Mera MD [address], [address], [place], [address], [employer] 07/16/2022 11:36:45 11/04/2022 text/html 66 yo female com es in for follow up in management of poorly controlled type 2 DM (A1C of 10% up from 9.9%), dyslipidemia and hypothyroidism. at initial visit in June we added trulicity as ozempic was costly, we added glimepiride scale along with increasing tresiba 76 units at bedtime with self titration instructions to get to goal fasting glucose. We continued LT4 125 mcg daily and statin therapy. Since her initial visit we transitioned and increased to unithroid 137 mcg daily. she is not on glimepiride but on glyburide. sugars over 200 mg/dL during the day- struggling with her portion control. fasting glucose under 100 mg/dL consistently. denies hypoglycemia. labs from 10/22/22:calcium 10.2 mg/dL up from 9.5 mg/dLTSH of 2 uIU/mlFT4 of 1.42 ng/dLa1c 10%glucose 88 mg/dLCr normalLFT uuty381/217/47/37micr oalbumin 124 ug/mg up from 6 ug/mg Maddy Mera MD [address], [address], [place], [address], [employer] 11/04/2022 14:16:13 OBGyn Episode No OBEpisode recorded.
--- NOTE | 2024-09-18 10:30 | NEURO_ITS ---
Impression: # Known diabetic complains of increasing numbness. ? # Severe neuropathy with minimal responses noted. ? # Needle/EMG exam abnormal with decreased motor unit potentials but no denervation. Nerve Conduction Studies Anti Sensory Summary Table ?Stim Site NR Peak (ms) P-T Amp (?V) Site1 Site2 Delta-P (ms) Dist (cm) Norris (m/s) Left Sup Fibular Anti Sensory (Ant Lat Mall)??? NO RESPONSE 14 cm NR 14 cm Ant Lat Mall 16.0 Right Sup Fibular Anti Sensory (Ant Lat Mall)??? NO RESPONSE 14 cm NR 14 cm Ant Lat Mall 16.0 Left Sural Anti Sensory (Lat Mall)??? NO RESPONSE Calf NR Calf Lat Mall 16.0 Right Sural Anti Sensory (Lat Mall)??? NO RESPONSE Calf NR Calf Lat Mall 16.0 Motor Summary Table ?Stim Site NR Onset (ms) O-P Amp (mV) Site1 Site2 Delta-0 (ms) Dist (cm) Norris (m/s) Left Peroneal Motor (Vastus Med)??? NO RESPONSE Ankle NR Popit Ankle 0.0 Popit NR Right Peroneal Motor (Vastus Med)?? ?NO RESPONSE Ankle NR Popit Ankle 0.0 Popit NR Left Tibial Motor (Abd Segura Brev)??? NO RESPONSE Ankle NR Knee NR Right Tibial Motor (Abd Segura Brev)??? NO RESPONSE Ankle NR Knee NR F Wave Studies ?NR F-Lat (ms) L-R F-Lat (ms) Left Peroneal (Mrkrs) (EDB)??? NO RESPONSE NR Right Peroneal (Mrkrs) (EDB)??? NO RESPONSE NR Left Tibial (Mrkrs) (Abd Hallucis)??? NO RESPONSE NR Right Tibial (Mrkrs) (Abd Hallucis)??? NO RESPONSE NR EMG ?Side Muscle Nerve Root Ins Act Fibs Amp Dur Recrt Comment Right AntTibialis Dp Br Fibular L4-5 Nml Nml Decr >12ms +1 Right Gastroc Tibial S1-2 Nml Nml Decr >12ms +1 Right Fibularis Long Sup Br Fibular L5-S1 Nml Nml Decr >12ms +1 Right Flex Dig Long Tibial L5-S2 Nml Nml Decr >12ms +1 Right Ext Dig Brev Dp Br Fibular L5, S1 Nml Nml ----- ----- ----- Right QuadratusFem QuadFemoris L4-5, S1 Nml Nml Decr >12ms +1 Left AntTibialis Dp Br Fibular L4-5 Nml Nml Decr >12ms +1 Left Gastroc Tibial S1-2 Nml Nml Decr >12ms +1 Left Fibularis Long Sup Br Fibular L5-S1 Nml Nml Decr >12ms +1 Left Flex Dig Long Tibial L5-S2 Nml Nml Decr >12ms +1 Left Ext Dig Brev Dp Br Fibular L5, S1 Nml Nml ----- ----- ----- Left QuadratusFem QuadFemoris L4-5, S1 Nml Nml Decr >12ms +1 MTDD
== END 2024-09-18 10:08 | disposition home or self-care (01) ==
LOC: ANHNEURO 10:11
PROVIDERS: PCP Family Medicine; Visit Provider Family Medicine
DX: E11.40 Type 2 diabetes mellitus with diabetic neuropathy, unspecified (principal)
CPT/HCPCS: 95886; 95910